=== PATIENT | male | born 1965 | race African-American/Black ===

== ENCOUNTER 2016-06-24 09:53 | Inpatient (IN) ==
[2016-06-24] MEDS ORDERED: ALUM/MAG/SIMETH/LIDO VISC 1:1 30 ML BOTTLE PO STA (10:12)
[2016-06-24] MEDS ORDERED: ASPIRIN 325 MG TABLET PO STA (10:12)
--- NOTE | 2016-06-24 10:15 | EKG Report ---
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
--- NOTE | 2016-06-24 10:27 | Emergency Department Note ---
Joel Ramon Hilary, am scribing for, and in the presence of, Rakesh Alarcon MD 10: 17. Agnes Ramon James D, MD, personally performed the services described in this documentation, ascribed by Maranda Maldonado in my presence, and it is both accurate and complete . Arrival - Arrival Chief Complaint: Neuro Stated Complaint: num b on one side and neck ED Nursing Triage Note: Pt c/o left sided weakness (face/arm/leg) and a " pulling in his chest" that started a couple of wks ago. Blood sugar in triage 88. Mode of Arrival: Ambulatory Limitations: No Limitations Source: Patient, Significant other (), RN Notes Reviewed Time Seen by Provider: 06/24/16 10:08 - History of Present Illness HPI Narrative: Pt is a 50y/o black male presenting to the ED with c/o numbness in his left arm and leg and "pulling in his chest" which onset a few weeks ago. Pt confirms chest pain that anand and feels like its "pulling", numbness to his left arm and left leg, SOB, Coughing but denies swelling in his feet. Pt was in the ED a few days ago for this and was diagnosed with type 2 diabetes. Blood sugar in triage 88. He denies any exertional component. Onset (ago): week(s) Consistency: constant Allergies/Adverse Reactions: Allergies Allergy/AdvReac Type Severity Reaction Status Date / Time No Known Allergies Allergy Verified 06/24/16 09:59 Home Medications: Home Medications Medication Instructions Recorded Confirmed Type HYDROcodone/ACETAMIN 5-325 [[place] 1 tablet PO Q6H PRN 06/24/16 06/24/16 History 5-325] Lansoprazole [Prevacid] 30 mg PO DAILY 06/24/16 06/24/16 History Levothyroxine Tab [Synthroid Tab] 50 mcg PO DAILY 06/24/16 06/24/16 History Potassium Chloride [Klor-Con M20] 20 meq PO BID 06/24/16 06/24/16 History Pravastatin Sodium 20 mg PO BEDTIME 06/24/16 06/24/16 History hydroCHLOROthiazide 25 mg PO DAILY 06/24/16 06/24/16 History [Hydrochlorothiazide] metFORMIN [Glucophage] 500 mg PO DAILY 06/24/16 06/24/16 History Review of System - Review of System 12 point system: reviewed and no additional remarkable complaints except as stated - Review of System Constitutional: Absent: fever Respiratory: Present: cough, respiratory distress (SOB) Cardiovascular: Present: chest pain Gastrointestinal: Absent: abdominal pain Musculoskeletal: Absent: back pain Neurological: Present: numbness (left arm and leg) Medical,Surgical,& Family Hx - Medical History Cardio: History of: Hypertension Endocrine: History of: Diabetes Mellitus (NIDDM) - Social History Smoking Status: Never smoker Exam Physical Examination: GENERAL: This is a well-nourished, well-developed male in no apparent distress. VITAL SIGNS: Temperature: 96.3 Pulse: 95 Respiratory: 18 Blood Pressure: 167/110 O2SAT: 98 HEENT: Head is normocephalic and atraumatic. Pupils are equally round and reactive to light. Extraocular movement are intact. Oropharynx is benign with moist mucous membranes. NECK: Neck is soft and supple without tenderness. There are no masses. There is no lymphadenopathy. LUNGS: Lungs are clear to auscultation bilaterally. Chest rises symmetrically. There is slight chest wall tenderness. CV: Heart is regular rate and rhythm without murmurs, rubs, or gallops. ABDOMEN:Abdomen is soft, non-tender to palpation. There are no abnormal masses palpated. There is no organomegaly. Bowel sounds are present and active. SKIN: Skin is warm and dry. No rash. EXTREMITIES: Patient has full range of motion without tenderness. There is no pedal edema. NEUROLOGIC: Awake, alert, and oriented x4. Cranial nerves II through XII are grossly intact. There are no motorsensory deficits. PSYCHIATRIC: Normal affect. Normal mood. Vital Signs: Vital Signs Temperature 96.3 F L 06/24/16 11:50 Pulse Rate 95 H 06/24/16 11:50 Respiratory Rate 18 06/24/16 11:50 Blood Pressure 167/110 06/24/16 11:50 O2 Sat by Pulse Oximetry 98 06/24/16 09:56 Course - Consultations Consultation #1: Discussed with hospitalist. Patient will be admitted to their service. Time: 12:22 Results - Labs CBC & BMP: 06/24/16 10:58 06/24/16 10:34 Lab Results: I have reviewed the patients labs Labs: Laboratory Tests 06/24/16 11:15 Urine Color Yellow Urine Appearance Clear Urine Urobilinogen < 2.0 H Laboratory Tests 06/24/16 11:15 Urine Opiates Screen Positive H Laboratory Tests 06/24/16 06/24/16 10:34 10:58 WBC 4.8 RBC 3.87 Hgb 12.7 L Hct 33.1 L MCV 85.5 L MCHC 38.4 H Plt Count 84 L MPV 12.3 H Lymph # (Auto) 1.2 L Troponin I 0.046 H - EKG EKG results: interpreted by ERMD - Impressions EKG: Normal sinus rhythm with a rate of 89, short [place] interval, nonspecific ST-T wave changes, normal axis. - Diagnostic Findings Procedure: Chest x-ray: image reviewed by me (No infiltrates, no pleural effusions, no cardiomegaly) Disposition Clinical Impression: Chest pain, Hyponatremia Case discussed with: patient Disposition: Still a Patient Condition: Stable
[2016-06-24] MEDS ORDERED: ASPIRIN 325 MG TABLET ONE (10:31)
[2016-06-24] MEDS ORDERED: ALUM/MAG/SIMETH/LIDO VISC 1:1 30 ML BOTTLE PO ONE (10:31)
--- NOTE | 2016-06-24 10:50 | XRay Report ---
Exam: Chest 2 views Date: June 24, 2016 at 10:20 AM Comparison: Chest one view May 01, 2013 Reason: Chest pain Findings: The cardiac silhouette is normal in size. No focal consolidation, pneumothorax or pleural effusion is identified. No acute osseous process is seen. Impression: No acute cardiopulmonary process is identified. PROCEDURE INTERPRETED AT [facility] DEPARTMENT OF RADIOLOGY Final Report Signed by: Dr. Margaret Sexton
[2016-06-24 11:25] LABS: Apearance,Urine CLEAR (Clear); Bilirubin,Urine Negative (Negative); Blood, Urine Moderate mg/dL (Negative); Glucose,Urine (UA) Negative (Negative); Hyaline Casts,Urine 1 /LPF (0-3); Ketones,Urine 5 mg/dL (Negative); Mucus,Urine Occasional /LPF (Occasional); Nitrite,Urine Negative (Negative); Protein,Urine Negative; RBC,Urine <1 /HPF (0-4); Squamous Epithelial Cell,Urine Occasional /HPF (0-10); Urine Color Yellow (Yellow); Urine Specific Gravity 1.013 (1.001-1.035); Urine Urobilinogen < 2.0 EU/DL (0.2-1.0); WBC,Urine 1 /HPF (0-6)
[2016-06-24 11:31] LABS: Barbiturates Screen,Urine Negative (Negative); Benzodiazepines Screen,Urine Negative (Negative); Cannabinoid Screen,Urine Negative (Negative); Opiate Screen,Urine Positive (Negative); Phencyclidine Screen,Urine Negative (Negative)
[2016-06-24 11:36] LABS: Basophils % 0.6 % (0.0-0.8); Eosinophils % 0.2 % (0.00-10.9); Hematocrit 33.1 VOL% (42.0-52.0); Hemoglobin 12.7 GM/DL (14.0-18.0); Immature Granulocytes % 0.8 %; Immature Granulocytes Absolute 0.04 #; Lymphocytes # 1.2 10*3/uL (1.4-4.0); Lymphocytes % 24.4 % (21.2-54.2); Mean Corpuscular HGB Conc 38.4 GM/DL (32-36); Mean Corpuscular Hemoglobin 33 PG (27-34); Mean Corpuscular Volume 85.5 FL (87-102); Mean Platelet Volume 12.3 FL (9.6-12.0); Monocytes # 0.3 10*3/uL (0.11-0.8); Monocytes % 6.9 % (1.7-12.7); Neutrophils # 3.2 10*3/uL (1.4-7.4); Neutrophils % 67.1 % (38.7-73.9); Red Blood Count 3.87 MC/CUMM (3.8-5.5); White Blood Count 4.8 T/CUMM (4-12)
[2016-06-24 11:39] LABS: INR 1.3; Partial Thromboplastin Time 27.9 SECS (0-40)
[2016-06-24 11:40] LABS: PT Patient Result 14.3 SECS; Platelet Count 84 T/CUMM (130-400)
[2016-06-24 11:57] LABS: Hypochromasia 1+; Platelet Estimate Decreased; Target Cells Few
[2016-06-24 12:22] LABS: Albumin 3.3 G/DL (3.4-5.0); Bilirubin,Total 7.1 MG/DL (0.2-1.0); Calcium 7.7 MG/DL (8.5-10.1); Magnesium 2.1 MG/DL (1.8-2.4); Osmolality,Calculated 242.2 MOS/KG (273-304); Potassium 3.3 MMOL/L (3.5-5.1); Total Protein 7.2 G/DL (6.4-8.3)
[2016-06-24] MEDS ORDERED: ONDANSETRON 4 MG/2 ML VIAL IV PRN (12:42)
[2016-06-24] MEDS ORDERED: GLUCAGON 1 MG VIAL IM PRN (12:42)
[2016-06-24] MEDS ORDERED: DEXTROSE 50% 25 GM/50 ML VIAL IV PRN (12:42)
[2016-06-24] MEDS ORDERED: LACTULOSE 20 GM/30 ML UDCUP PO PRN (12:42)
[2016-06-24] MEDS ORDERED: ACETAMINOPHEN 325 MG TABLET PO PRN (12:42)
[2016-06-24] MEDS: SODIUM CHLORIDE 0.9% 1,000 ML IV SCH (12:50)
[2016-06-24] MEDS: LORazepam 2 MG/1 ML VIAL IV PRN ×2 (13:15→17:34)
[2016-06-24 13:54] LABS: Risk Ratio 24.05; VLDL CHOLESTEROL 262.2 MG/DL
--- NOTE | 2016-06-24 14:02 | Hospitalist History & Physical ---
Assessment and Plan - Time spent with patient Time spent with patient: Greater than 30 minutes (1) Acanthosis nigricans Status: Acute Assessment and plan: 50-year-old -[place] male with history of hypertension and diabetes admitted by hospital medicine with chest pain, delirium tremens, hyperbilirubinemia, and hyponatremia. Patient is going to be admitted to the ICU for close evaluation and monitoring. Patient's case has been discussed with Dr. Arauz and further recommendations to follow. Chest pain and elevated troponin--we will get serial troponins and serial EKGs, consult cardiology. Hyperbilirubinemia and jaundice--patient has been started on IV fluids, CT scan and abdominal ultrasound have been ordered. Will discuss with Dr. Arauz about consulting GI. Hyponatremia--gentle hydration with normal saline and repeat labs daily. Hypokalemia--potassium replacement Diabetes--we will hold his metformin during this hospital stay and start sliding scale insulin. Delirium tremens and alcohol abuse--this is most likely from alcohol abuse. Will order banana bag, Ativan as needed and Librium. Lactulose is also been ordered Current Visit: Yes (2) Hypokalemia Status: Acute Current Visit: Yes (3) Delirium tremens Status: Acute Current Visit: Yes (4) Hyperbilirubinemia Status: Acute Current Visit: Yes (5) Jaundice Status: Acute Current Visit: Yes (6) Chest pain Status: Acute Current Visit: Yes (7) Hyponatremia Status: Acute Current Visit: Yes (8) Alcohol abuse Status: Acute Current Visit: Yes History of Present Illness Chief complaint: chest pain History of present illness: Mr. Sims is a 50 year old male with history of diabetes and hypertension presenting to the ED with a 2 week history of pulling left-sided chest pain that radiates to the left neck and arm. Patient's is with him and got a combination history from the 2 of them. Patient states for about 2 weeks now he has been having pulling gnawing chest pain on the left side this is associated with nausea and diaphoresis. They went to the [facility] and was told he had a pulled muscle. He was also found to be a new diabetic and was started on metformin. Patient is also complaining of darkness, edema, with tightness and pain to his left neck up to his ear. He is also complaining of intermittent left arm and leg numbness for the last few weeks. He denies headache, dysphasia, shortness of breath, abdominal pain, constipation or diarrhea, or lower extremity swelling. Patient states the chest pain has not gotten any better so he came to the ED today. Upon exam patient is jaundiced, anxious, and twitchy. When asked if the patient has been drinking he denied this. When asked if he previously drank the stated that he drinks anywhere from 2-6 beers per day. Patient denies drinking in the last 2 days. Patient states she has been nauseated and sweaty and he has not eaten much in the last few days. His blood pressures are elevated at 167/110, his white count is normal and H&H is stable. The patient's platelets are 84, total bilirubin is 7.1, AST 573, ALT 209, ALP 379 with a normal lipase. His sodium is low at 120 and his potassium is low at 3.3. Patient's coags are normal. His serum alcohol is 111 and his toxicology screen is positive for opiates. Patient's EKG is showing a sinus rhythm with short HI interval and nonspecific T -wave abnormality. After discussion with ED physician Dr. Alarcon and Dr. Arauz the hospitalist it was decided patient would be admitted to the ICU for further evaluation. Home Medications Medication Instructions Recorded Confirmed Type HYDROcodone/ACETAMIN 5-325 [[place] 1 tablet PO Q6H PRN 06/24/16 06/24/16 History 5-325] Lansoprazole [Prevacid] 30 mg PO DAILY 06/24/16 06/24/16 History Levothyroxine Tab [Synthroid Tab] 50 mcg PO DAILY 06/24/16 06/24/16 History Potassium Chloride [Klor-Con M20] 20 meq PO BID 06/24/16 06/24/16 History Pravastatin Sodium 20 mg PO BEDTIME 06/24/16 06/24/16 History hydroCHLOROthiazide 25 mg PO DAILY 06/24/16 06/24/16 History [Hydrochlorothiazide] metFORMIN [Glucophage] 500 mg PO DAILY 06/24/16 06/24/16 History Allergies Allergy/AdvReac Type Severity Reaction Status Date / Time No Known Allergies Allergy Verified 06/24/16 09:59 Medical,Surgical,& Family Hx - Medical History Cardio: History of: Hypertension Endocrine: History of: Diabetes Mellitus (NIDDM) - Surgical History Abdominal Surgeries: Surgical HX of: Appendectomy - Family History Family History: Reports;: Family Hypertension - Social History Smoking Status: Never smoker Frequency of Alcohol Use: Frequently Type of Drug Use: None Marital Status: Lives With:: Spouse Functional capacity: independent ambulation Review of systems: A complete 10 system review of systems was obtained and pertinent positives and negatives per HPI Exam - Constitutional Vitals: Period Temp Pulse Resp BP Sys/Soto Pulse Ox Last 24 Hr 96.3 F-96.3 F 95-95 18-18 167-167/110-110 98 Exam: 50-year-old -[place] male, anxious, twitchy, alert and oriented Constitutional System: Moderate distress. Positive tremulousness. Head: Normocephalic, atraumatic. Ears, Nose and Throat System: No evidence of Otitis or Mastoiditis. No epistaxis or discharge Eyes System: Pupils equal, round, and reactive. Extraocular muscles intact. Neck: Supple, without adenopathy, No jugular venous distention. No thyromegaly, neck mass, or prior surgery apparent. Respiratory System: Chest clear to auscultation. Cardiovascular System: Heart with regular rate and rhythm. No murmur. GI System: Abdomen soft, nontender. Normo active bowel sounds present. Musculoskeletal System: limbs with no pedal edema. Full distal pulses. Neurological System: No discernable sensory deficit. No aphasia Psychiatric System: Conversation is rational Results - Labs CBC & BMP: 06/24/16 10:58 06/24/16 10:34 Lab Results: I have reviewed the past 24 hour labs - EKG EKG results: interpreted by JOEYD - Diagnostic Findings Procedure: Chest x-ray: report reviewed by me (No acute abnormality)
[2016-06-24] MEDS ORDERED: chlordiazePOXIDE 10 MG CAPSULE PO SCH (15:00)
--- NOTE | 2016-06-24 15:48 | CT Report ---
Referring physician: Ana Arauz EXAM: CT abdomen and pelvis with contrast DATE: June 24, 2016 COMPARISON: Limited abdominal ultrasound May 03, 2015 REASON: Elevated bilirubin, low platelets, sodium 120, possible liver disease TECHNIQUE: Axial images of the abdomen and pelvis were obtained after administration of 100 cc of Omnipaque 350 IV contrast. Oral contrast was also administered. Coronal and sagittal reformatted images were also provided. Total DLP is 681.6 mGy*cm. FINDINGS: Lower thorax: The visualized lower lung zones are clear. ABDOMEN: Liver: There is diffuse decreased attenuation of the liver, suggesting hepatic steatosis. No suspicious hepatic lesion is identified. The liver contour is smooth with no clear evidence of cirrhosis by CT. The main portal vein appears patent. Gallbladder and bile ducts: The gallbladder is unremarkable. No biliary duct dilatation is present. Pancreas: Unremarkable. Spleen: Unremarkable. Adrenals: Unremarkable. Kidneys and ureters: No hydronephrosis is present. There is a 0.5 cm hypodense lesion at the upper pole of the left kidney. This is most consistent with a cyst, but characterization is limited by its small size. The ureters are unremarkable as visualized. PELVIS: Bladder: Unremarkable. Reproductive: Unremarkable as visualized. ABDOMEN AND PELVIS: Bowel: There is no evidence of bowel obstruction. Colonic diverticula are present, but there is no evidence of diverticulitis. Appendix: The appendix is not identified, but there is a history of appendectomy. Vasculature: The abdominal aorta is normal in size. There is mild scattered calcified plaque at the arteries. Peritoneum/retroperitoneum: No free air or ascites is seen. Lymph nodes: No suspicious adenopathy is seen. Abdominal/pelvic wall: There is a small broad-based fat-containing umbilical hernia. Bones: No acute osseous process is identified. IMPRESSION: 1. There is diffuse decreased attenuation of the liver, suggesting hepatic steatosis. There is no clear CT evidence of cirrhosis or portal hypertension. 2. Colonic diverticulosis without evidence of diverticulitis. 3. Small left renal cyst. The CT exam was performed using one or more of the following dose reduction techniques: Automated exposure control and adjustment of the mA and/or kV according to patient size. PROCEDURE INTERPRETED AT [facility] DEPARTMENT OF RADIOLOGY Final Report Signed by: Dr. Margaret Sexton
--- NOTE | 2016-06-24 15:55 | ECHO Report ---
Ignacio Sims Exam Date: 06/24/2016 13:41 Referring Physician: Technologist: Debbie Mccray [facility] Age: 50 Ht (in): 64 Wt (lb): 164 Gender: M Exam Location: [facility] Echo Cough, Shortness of breath, Essential (primary) hypertension, NIDDM BP: 167 / 110 HR: 88 Rhythm: Sinus Technical Quality: IMPRESSIONS Normal left ventricular size and function with left ventricular ejection fraction is estimated at 60 %. Trace to mild tricuspid valve regurgitation. MEASUREMENTS (Male / Female) Normal Values 2D ECHO LV Diastolic Diameter PLAX 4.4 cm 4.2 - 5.9 / 3.9 - 5.3 cm LV Systolic Diameter PLAX 2.5 cm LV Fractional Shortening PLAX 44.6 % IVS Diastolic Thickness 0.9 cm 0.6 - 1.0 / 0.6 - 0.9 cm LVPW Diastolic Thickness 0.9 cm 0.6 - 1.0 / 0.6 - 0.9 cm RV Internal Dim ED PLAX 2.8 cm Aortic Root Diameter 3.2 cm LA Systolic Diameter LX 2.7 cm 3.0 - 4.0 / 2.7 - 3.8 cm DOPPLER TR Peak Velocity 278.0 cm/s TR Peak Gradient 30.9 mmHg FINDINGS Left Ventricle Normal left ventricular cavity size. Normal left ventricular wall thickness. Left ventricular ejection fraction is estimated at 60 %. Right Ventricle The right ventricle is normal in size and function. Right Atrium Normal right atrial size Left Atrium Normal left atrial size Mitral Valve Morphologically normal mitral valve without significant stenosis or prolapse. There is no mitral regurgitation. Aortic Valve Morphologically normal aortic valve without significant sclerosis or stenosis. There is no aortic regurgitation. Tricuspid Valve Morphologically normal tricuspid valve. Trace to mild tricuspid valve regurgitation. Tricuspid regurgitation velocities suggest a PAP of 41 mmHg. Pulmonic Valve Morphologically normal pulmonic valve. Trace to mild pulmonary valve regurgitation. Pericardium Normal pericardium without effusion. Aorta Normal ascending aorta dimension. Leonardo Rahman (Electronically Signed) Final Date: 24 Jun 2016 15:53
[2016-06-24] MEDS: PANTOPRAZOLE 40 MG VIAL IV SCH (16:18)
[2016-06-24 16:21] LABS: Hemoglobin 12.4 GM/DL (14.0-18.0)
[2016-06-24 16:22] LABS: Hematocrit 30.8 VOL% (42.0-52.0)
[2016-06-24] MEDS ORDERED: FOLIC ACID 5 MG/1 ML VIAL IV SCH (16:30)
--- NOTE | 2016-06-24 16:30 | Cardiology Consult Note ---
Assessment and Plan (1) Chest pain Status: Acute Assessment and plan: The patient has very atypical chest discomfort with a normal EKG and normal echo. His chest discomfort is reproducible with pressure over the left chest wall. He does have some paresthesias in his left arm which would make me suspicious this could be neurogenic/related to nerve compression in the cervical region. Ultimately, this does not appear to represent any high risk/ acute cardiac abnormality. His cardiac troponin is actually essentially a normal value. I don't think I would pursue additional cardiac workup at this time given his normal EKG and echo. I am going to drop off the case at this time. If the patient is having ongoing cardiac related issues after his other problems have been worked up/corrected, or if he has a clinical change in his cardiac status, I will be happy to reevaluate him.. Current Visit: Yes (2) Alcohol abuse Status: Acute Current Visit: Yes (3) Hyperbilirubinemia Status: Acute Assessment and plan: Workup for the patient's numerous metabolic and liver-related abnormalities is underway by the hospitalist team. Current Visit: Yes (4) Delirium tremens Status: Acute Current Visit: Yes (5) Hypokalemia Status: Acute Current Visit: Yes (6) Hyponatremia Status: Acute Current Visit: Yes (7) Jaundice Status: Acute Current Visit: Yes (8) Thrombocytopenia Status: Acute Current Visit: Yes History of Present Illness - Consult Narrative History of present illness: Mr. Sims is a 50 year old male who reports a history of hypertension, diabetes, and hyperlipidemia. He came in to the hospital complaining of some "pulling" in his left chest with some paresthesias in his left arm. He apparently was worked up at [place] emergency room for the same thing recently and was told he had "a pulled muscle". At any rate, the symptoms coming go randomly. They're reproducible with pressure over the left chest wall. The symptoms are mild. There are no associated symptoms such as nausea or diaphoresis. He does not have any exertional anginal symptoms. He does report getting fatigued and dyspneic with minimal activity which is been going on "for quite some time". His EKG is essentially normal. His cardiac enzymes show a trivial abnormality with a level of 0.046 which is literally 1000th of a point above hour normal range. However, the patient has profound abnormalities in his liver functions and other labs including a sodium of 120, a bilirubin of 7.1, diffuse elevation of transaminases, cholesterol of 529, and triglyceride of 1311 as well as an anemia and thrombocytopenia. The patient is an alcoholic with a heavy drinking history as outlined in the history and physical. He may also been an early withdrawal when he arrived in the hospital despite having measurable alcohol levels in his bloodstream. In addition he was positive for opiates on his lab testing. Cardiology was asked to see him regarding the chest discomfort symptoms and the abnormality and cardiac enzymes. He has no known history of coronary artery disease. The patient had an echocardiogram at the time of admission. I reviewed the echo. He has a normal echo. He has normal left ventricular function. He does not have any significant valvular dysfunction or other abnormality. CC: Ana Arauz MD - Home Medications and Allergies Home Medications: Home Medications Medication Instructions Recorded Confirmed Type HYDROcodone/ACETAMIN 5-325 [[place] 1 tablet PO Q6H PRN 06/24/16 06/24/16 History 5-325] Lansoprazole [Prevacid] 30 mg PO DAILY 06/24/16 06/24/16 History Levothyroxine Tab [Synthroid Tab] 50 mcg PO DAILY 06/24/16 06/24/16 History Potassium Chloride [Klor-Con M20] 20 meq PO BID 06/24/16 06/24/16 History Pravastatin Sodium 20 mg PO BEDTIME 06/24/16 06/24/16 History hydroCHLOROthiazide 25 mg PO DAILY 06/24/16 06/24/16 History [Hydrochlorothiazide] metFORMIN [Glucophage] 500 mg PO DAILY 06/24/16 06/24/16 History Allergies/Adverse Reactions: Allergies Allergy/AdvReac Type Severity Reaction Status Date / Time No Known Allergies Allergy Verified 06/24/16 09:59 12 point system: reviewed and no additional remarkable complaints except as stated Medical,Surgical,& Family Hx - Medical History Cardio: History of: Hypertension No history of: [place] Psychological: History of: Psychiatric/Substance Abuse Tx (Alcohol abuse) Endocrine: History of: Diabetes Mellitus (NIDDM), Dyslipidemia Gastrointestinal: History of: GERD, Liver Problems - Surgical History Abdominal Surgeries: Surgical HX of: Appendectomy - Family History Family History: Reports;: Family Hypertension - Social History Smoking Status: Never smoker Frequency of Alcohol Use: Frequently Type of Drug Use: None Physical Examination Vital Signs Temp Pulse Resp BP Pulse Ox 96.3 F L 95 H 18 167/110 98 06/24/16 09:56 06/24/16 09:56 06/24/16 09:56 06/24/16 09:56 06/24/16 09:56 Other: General: Appears well developed, well nourished, no apparent distress HEENT: Normocephalic, atraumatic Neck: Supple Neck, Midline Trachea, No Bruit, No JVD Cardiac: Reg Rate and Rhythm, No Murmur, no gallop, no rub Lungs: Clear to auscultation, No Wheeze, Rales, Rhonchi Neuro: Cranial Nerve 2-12 Intact, Motor Function Grossly Intact Abdomen: Soft, Active Bowel Sounds, No Masses, No Pulsations/Bruits Skin: Normal color, no rash Extremities: No Clubbing, No Cyanosis, No Edema, Normal Upper Extr. Pulses Musculoskeletal: No acute abnormality noted Psychiatric: The patient does not appear to be anxious or depressed Result/EKG - Labs CBC & BMP: 06/24/16 15:45 06/24/16 10:34 Lab Results: I have reviewed the past 24 hour labs Labs: Laboratory Results - last 24 hr 06/24/16 06/24/16 06/24/16 13:02 15:43 15:45 Hgb 12.4 L Hct 30.8 L Venous Ioniz Calcium 0.91 Random Cortisol 31.9 Urine Osmolality 06/24/16 Unknown Hgb Hct Venous Ioniz Calcium Random Cortisol Urine Osmolality 551 - EKG EKG results: interpreted by me
[2016-06-24 17:01] LABS: Calcium 7.2 MG/DL (8.5-10.1); Osmolality,Calculated 234.6 MOS/KG (273-304); Potassium 3.3 MMOL/L (3.5-5.1)
[2016-06-24] MEDS: INSULIN LISPRO 100 UNIT/ML SUBCUT SCH ×2 (17:07→21:16)
[2016-06-24 17:24] LABS: Hepatitis A Ab IgM Quant 0.08 Index; Hepatitis A Ab IgM Result Negative (Negative); Hepatitis B Core IgM Quant 0.32 Index; Hepatitis B Core IgM Result Negative (Negative); Hepatitis B Surface Ag Quant < 0.10 Index; Hepatitis B Surface Ag Result Negative (Negative); Hepatitis C Virus Ab Quant 0.18 Index; Hepatitis C Virus Ab Result Negative (Negative)
[2016-06-24] MEDS: THIAMINE INJ 100 MG, FOLIC ACID INJ 1 MG, MULTIVITAMIN INJ 10 ML in SODIUM CHLORIDE 0.9... IV SCH (17:35)
--- NOTE | 2016-06-24 19:11 | Gastrointestinal Consult Note ---
Assessment and Plan (1) Alcoholic hepatitis without ascites Status: Acute Assessment and plan: This patient has a long-standing history of alcohol intake with a possible increase in recent intake although patient states that his typical daily alcohol use is on the order of 12 of the 12 ounce beers per day. We have no previous bilirubins to compare with since 05/02/13 at which time his ALT was 155 his AST was 225 and his alkaline phosphatase was 176 with a bilirubin of 3.3. Currently his bilirubin is up to 7.7 on admission. At this point in time his MELD score calculates out to 26. His Maddrey discriminant function score only calculates out to a 13.1, with normal being below 32. I agree with Dr. Arauz this patient does not need steroids. He has good synthetic function as witnessed by his low PT/INR and his relatively intact albumin total protein. He likely does have cirrhosis however given his sodium of 117-120 and his platelet level of 84, despite the findings on CT scan. I will go ahead and check his ammonia level and AFP level mostly from baseline. We will continue to watch this patient as he moves through the next 2 days for evidence of DTs. I personally do not like long-acting benzodiazepines like Librium, preferring to treat DTs with shorter acting boluses of either Ativan or Serax. I suspect that his alcoholic hepatitis will improve to some degree although bear in mind that his bilirubin 2 years ago was 3.3 and so will likely settle down to a ~5 when he is back at his baseline. We need to emphasize abstinence for this patient, realizing that his recidivism rate will be extremely high. Current Visit: Yes (2) Guaiac positive stools Status: Acute Assessment and plan: We will continue to watch this patient's hematocrit currently this is 33.1 with hemoglobin of 12.7. He is only mildly guaiac positive I do not see any evidence of bloody stools. It may be helpful to know if the patient has varices before he leaves the hospital to know whether or not we need to put him on beta-blockers for prophylaxis. We certainly cannot scope the patient while he has a sodium below 130 and so continued correction of this electrolyte will be crucial. Risks of the procedure include but are not limited to: Bleeding, infection, cardiac and pulmonary compromise. Current Visit: Yes (3) Hyponatremia Status: Acute Assessment and plan: Agree with judicious use of normal saline. Observe for development of gross ascites. Will likely need to keep an eye on the patient's potassium as well as magnesium levels as the latter tends to be chronically low in these patients. Agree with serial metabolic profiles. Current Visit: Yes (4) Personal history of alcoholism Status: Acute Assessment and plan: See above. Note that he will not be a transplant candidate until he is been sober for at least 6 months. His current MELD score would qualify for potential transplant. Current Visit: Yes History of Present Illness Chief complaint: Alcoholic hepatitis History of present illness: Mr. Sims is a 50 year old male who has a history of some atypical chest pain and states that he has had some dark stools earlier and his noted to have some brown stools on physical exam that are indeed guaiac positive. He is a long- standing alcoholic who states that he drinks 12 beers per day and emphasizes that these are 12 ounce beers. He denies emphatically use of whiskey on top of the beer intake. His laboratories demonstrate evidence of alcoholic hepatitis with an AST of 573 with an ALT of 209, alkaline phosphatase of 379 and a bilirubin of 7.1. Surprisingly the INR is only 1.3. CT scan does not demonstrate biliary ductal dilatation nor are there any liver masses seen and although the echotexture of the liver is increased in keeping with steatosis versus cirrhosis there is no ascites or shrinkage of liver/nodularity of the liver edge as might be seen with cirrhosis typically. He has had some nausea and vomiting recently. He denies any visual or auditory hallucinations to me but I previously admitted these to Dr. Arauz. His sodium is extremely low in keeping with alcoholism, currently down to 117. Surprisingly his magnesium level is normal at 2.1. Total protein albumin did not indicate significant malnutrition. The patient has been given Ativan and is fairly sedated at this time and provides some of his history along with additional history taken from prior consults in the chart. I do not see that he has had previous endoscopy done for upper lower GI bleeding. He states that he stopped drinking yesterday which would explain his alcohol level in the emergency room of 111 at noon yesterday. And also that his urine opiate screen was positive as well. He is fortunately hepatitis A, B, and C negative. Home Medications Medication Instructions Recorded Confirmed Type HYDROcodone/ACETAMIN 5-325 [Erin 1 tablet PO Q6H PRN 06/24/16 06/24/16 History 5-325] Lansoprazole [Prevacid] 30 mg PO DAILY 06/24/16 06/24/16 History Levothyroxine Tab [Synthroid Tab] 50 mcg PO DAILY 06/24/16 06/24/16 History Potassium Chloride [Klor-Con M20] 20 meq PO BID 06/24/16 06/24/16 History Pravastatin Sodium 20 mg PO BEDTIME 06/24/16 06/24/16 History hydroCHLOROthiazide 25 mg PO DAILY 06/24/16 06/24/16 History [Hydrochlorothiazide] metFORMIN [Glucophage] 500 mg PO DAILY 06/24/16 06/24/16 History Allergies Allergy/AdvReac Type Severity Reaction Status Date / Time No Known Allergies Allergy Verified 06/24/16 09:59 Medical,Surgical,& Family Hx - Medical History Cardio: History of: Hypertension No history of: ND Psychological: History of: Psychiatric/Substance Abuse Tx (Alcohol abuse) Endocrine: History of: Diabetes Mellitus (NIDDM), Dyslipidemia Gastrointestinal: History of: GERD, Liver Problems - Surgical History Abdominal Surgeries: Surgical HX of: Appendectomy - Family History Family History: Reports;: Family Hypertension - Social History Smoking Status: Never smoker Frequency of Alcohol Use: Frequently Type of Drug Use: None ROS unobtainable: other (Recent opiate sedation. Patient cannot concentrate on questioning) Exam - Constitutional Vitals: Period Temp Pulse Resp BP Sys/Soto Pulse Ox Last 24 Hr 99.6 F 86-109 13-20 119-176/70-94 95-98 General appearance: no acute distress Exam: Constitutional: Well-developed, well-nourished, alert, and appears somnolent from recent Ativan use. Head and face: Head: Normocephalic atraumatic Eyes: Conjunctiva without injection, the patient does have some gross scleral icterus, pupils equal and round bilaterally Ears: Intact to conversation in both ears Nose: External appearance is normal, nares patent Mouth: Oral mucous membranes moist without erythema dentition noted to be without erosion Neck: Normal appearance, no masses or tenderness, trachea midline Thyroid: Gland midline and appropriate size for age Respiratory: Normal respiratory effort, clear to auscultation without wheezes, rhonchi or rales Cardiovascular: Regular rate and rhythm, normal S1, S2, the exam is without rubs, murmurs or gallops. Gastrointestinal: Very mild epigastric/periumbilical to deep palpation, the abdomen appears somewhat distended, normal active bowel sounds, tone normal without rigidity or guarding, no masses present, no hepatomegaly, no spleen tip felt. Moderate tenderness on with Shelley brown stool that was rectal exam obtained mildly guaiac positive.. Lymphatic: Neck without adenopathy, axilla without lymphadenopathy present, with darkened pigmentation noted at the axilla Musculoskeletal: Right and left lower extremities with trace evidence of edema Skin and subcutaneous tissue: No rashes or ulcerations noted, normal skin turgor, digits and nails without clubbing/cyanosis/deformities. Neurologic: The patient is somnolent but can answer some repeated questions Psychiatric: Patient is an active alcoholic he does not appear to be having agitation consistent with DTs but is instead quite somnolent likely secondary to the Ativan he has been given Results - Labs CBC & BMP: 06/24/16 15:45 06/24/16 15:43
[2016-06-24] MEDS: chlordiazePOXIDE 10 MG CAPSULE PO SCH (21:30)
[2016-06-24] MEDS: METOPROLOL TARTRATE 25 MG TABLET PO SCH (21:31)
[2016-06-24] MEDS: POTASSIUM CHLORIDE 20 MEQ TABLET PO SCH (21:31)
[2016-06-25] MEDS: SODIUM CHLORIDE 0.9% 1,000 ML IV SCH ×2 (02:01→03:13)
[2016-06-25] MEDS: chlordiazePOXIDE 10 MG CAPSULE PO SCH ×4 (02:05→17:08)
[2016-06-25 02:11] LABS: Basophils % 0.6 % (0.0-0.8); Eosinophils % 0.2 % (0.00-10.9); Immature Granulocytes % 0.6 %; Immature Granulocytes Absolute 0.03 #; Lymphocytes # 0.2 10*3/uL (1.4-4.0); Lymphocytes % 3.9 % (21.2-54.2); Mean Corpuscular HGB Conc 38.9 GM/DL (32-36); Mean Corpuscular Hemoglobin 33 PG (27-34); Mean Corpuscular Volume 85.9 FL (87-102); Monocytes # 1.7 10*3/uL (0.11-0.8); Monocytes % 36.1 % (1.7-12.7); Neutrophils # 2.7 10*3/uL (1.4-7.4); Neutrophils % 58.6 % (38.7-73.9); Platelet Count 66 T/CUMM (130-400); Red Blood Count 3.77 MC/CUMM (3.8-5.5); Red Cell Distribution Width 15.1 % (9.3-17.3); White Blood Count 4.6 T/CUMM (4-12)
[2016-06-25 02:19] LABS: Hematocrit 31.8 VOL% (42.0-52.0)
[2016-06-25 02:20] LABS: Hemoglobin 12.6 GM/DL (14.0-18.0)
[2016-06-25 02:47] LABS: Eosinophils 2 % (0-10); Lymphocytes 30 % (20-55); Myelocytes 1 %; Segmented Neutrophils 62 % (50-85); Total Cells Counted 100
[2016-06-25 02:49] LABS: Anisocytosis 1+
[2016-06-25 02:50] LABS: Hypochromasia 1+; Platelet Estimate Decreased
[2016-06-25 03:02] LABS: Albumin 2.9 G/DL (3.4-5.0); Calcium 7.8 MG/DL (8.5-10.1); Total Protein 6.5 G/DL (6.4-8.3)
[2016-06-25 03:03] LABS: Osmolality,Calculated 251.5 MOS/KG (273-304); Potassium 3.2 MMOL/L (3.5-5.1)
[2016-06-25 05:25] LABS: Random Urine Protein (Bench) 50 MG/DL (<11.9)
--- NOTE | 2016-06-25 07:22 | EKG Report ---
Stationary ECG Study [facility] Test Date: 06/25/2016 6:58:54 AM Pat Name: TOR FLORENTINO Department: Room: 121 Gender: M Director Mission: [place] : [id number] Requested by: Ana Arauz Order Number: [id number] Reading MD: AARON COOK Intervals [place] Rate: 89 P: 73 CO: 118 QRS: 35 QRSD: 84 T: -24 QT: 380 QTc: 426 Interpretive Statements SINUS RHYTHM WITH SHORT CO INTERVAL NONSPECIFIC T-WAVE ABNORMALITY Electronically Signed On 06-25-16 13:53:34 CDT by AARON COOK [email or web address]
[2016-06-25] MEDS ORDERED: COSYNTROPIN 0.25 MG VIAL IV ONE (08:00)
[2016-06-25] MEDS: INSULIN LISPRO 100 UNIT/ML SUBCUT SCH ×4 (08:22→20:48)
[2016-06-25] MEDS: PANTOPRAZOLE 40 MG VIAL IV SCH (08:48)
[2016-06-25] MEDS: LEVOTHYROXINE 50 MCG TABLET PO SCH (08:49)
[2016-06-25] MEDS: POTASSIUM CHLORIDE 20 MEQ TABLET PO SCH (08:49)
[2016-06-25] MEDS: METOPROLOL TARTRATE 25 MG TABLET PO SCH ×2 (08:49→21:13)
[2016-06-25] MEDS: ASPIRIN 325 MG TABLET PO SCH (08:49)
[2016-06-25] MEDS ORDERED: FOLIC ACID 5 MG/1 ML VIAL IV SCH (09:00)
[2016-06-25] MEDS ORDERED: PANTOPRAZOLE 40 MG TABLET PO SCH (09:00)
[2016-06-25 09:14] LABS: Calcium 8.1 MG/DL (8.5-10.1); Osmolality,Calculated 257.1 MOS/KG (273-304); Potassium 3.5 MMOL/L (3.5-5.1)
--- NOTE | 2016-06-25 09:48 | Hospitalist Progress Note ---
Assessment and Plan (1) Alcoholic hepatitis without ascites Status: Acute Assessment and plan: Liver enzymes continue to be elevated. GI is following the case. We have decreased the frequency of is Librium to Q8H. Discussed extensively the negative effects of alcohol abuse and the possibility of alcohol cessation. The patient was unwilling to commit to a definite plan of action at this time stating "I can quit". We will continue to monitor and follow recommendations of GI. Current Visit: Yes (2) Hyponatremia Status: Acute Assessment and plan: Infusing NS 75ml/lhr IV. Na normalizing at a safe rate. Na 128 today. We will continue this current plan of care. Current Visit: Yes (3) Chest pain Status: Acute Assessment and plan: Denies chest pain today. Troponins trending downward. Cardiology is following. Current Visit: Yes (4) Thrombocytopenia Status: Acute Current Visit: Yes (5) Personal history of alcoholism Status: Acute Current Visit: Yes Hospitalist: Subjective Interval history: Patient seen and examined today alongside Dr. Arauz. He is awake, responsive and appears to be much better than on admission. We discussed the negative life effects that alcohol abuse causes and the possibility of alcohol cessation. The patient voiced understanding but was unwilling to commit to a plan of action to quick drinking. Patient nor the nurse voiced any complaints overnight. Sodium is improving at a safe rate. Withdrawal symptoms seem to be under control, however the patient does appear to be somewhat aloof; not entirely attentive. We will continue to monitor for these symptoms. Continue the current plan of care. GI is following. Exam - Constitutional Vitals: Period Temp Pulse Resp BP Sys/Soto Pulse Ox Last 24 Hr 98.0 F-99.6 F 71-115 11-24 119-176/70-103 95-98 Exam: General appearance: overweight, no acute distress - Head Head exam: Present: normocephalic, atraumatic - Eye Eye exam: Present: EOMI. Absent: conjunctival injection, nystagmus Pupils: Present: ROXANA, normal accommodation - ENT ENT exam: Present: normal exam, normal external ear exam - Neck Neck exam: Present: normal inspection. Absent: lymphadenopathy, tenderness, thyromegaly - Respiratory Respiratory exam: Present: clear to auscultation bilaterally. Absent: rales, rhonchi, wheezes - Cardiovascular Cardiovascular exam: Present: regular rate and rhythm. Absent: carotid bruit, gallop, rubs - GI/Abdominal GI/Abdominal exam: Present: normal bowel sounds. Absent: ascites, distended, mass - Extremities Exam Extremities exam: Present: normal inspection, normal capillary refill. Absent: edema - Back Exam Back exam: Absent: CVA tenderness (L), CVA tenderness (R) - Neurological Exam Neurological exam: Present: alert, oriented X3 - Psychiatric Psychiatric exam: Present: normal affect, conversation is normal - Skin Skin exam: Present: normal color, warm, dry Results - Labs CBC & BMP: 06/25/16 02:06 06/25/16 08:26
[2016-06-25] MEDS: THIAMINE INJ 100 MG, FOLIC ACID INJ 1 MG, MULTIVITAMIN INJ 10 ML in SODIUM CHLORIDE 0.9... IV SCH (17:07)
--- NOTE | 2016-06-25 17:13 | Gastrointestinal Progress Note ---
Assessment and Plan (1) Alcoholic hepatitis without ascites Status: Acute Assessment and plan: This patient has a long-standing history of alcohol intake with a possible increase in recent intake although patient states that his typical daily alcohol use is on the order of 12 of the 12 ounce beers per day. We have no previous bilirubins to compare with since 05/02/13 at which time his ALT was 155 his AST was 225 and his alkaline phosphatase was 176 with a bilirubin of 3.3. Currently his bilirubin is up to 7.7 on admission. At this point in time his MELD score calculates out to 26. His Maddrey discriminant function score only calculates out to a 13.1, with normal being below 32. I agree with Dr. Arauz this patient does not need steroids. He has good synthetic function as witnessed by his low PT/INR and his relatively intact albumin total protein. He likely does have cirrhosis however given his sodium of 117-120 and his platelet level of 84, despite the findings on CT scan. I will go ahead and check his ammonia level and AFP level mostly from baseline. We will continue to watch this patient as he moves through the next 2 days for evidence of DTs. I personally do not like long-acting benzodiazepines like Librium, preferring to treat DTs with shorter acting boluses of either Ativan or Serax. I suspect that his alcoholic hepatitis will improve to some degree although bear in mind that his bilirubin 2 years ago was 3.3 and so will likely settle down to a ~5 when he is back at his baseline. We need to emphasize abstinence for this patient, realizing that his recidivism rate will be extremely high. 06/25/16--The patient's platelet level is down to 66 today. His hematocrit has not changed significantly. He is not having any GI bleeding aside from the scant guaiac positivity noted in his stools. He does state that his stools have been dark on and off and I anticipate before he is discharged from the hospital we will need to do an upper endoscopy looking for varices as well as gastritis. With a platelet level is low as it is he is physiologically anticoagulated and I would suggest that he probably does not need the aspirin each day for further anticoagulation. Will repeat patient's liver function tests and obtain ammonia level/AFP tomorrow. If there is significant elevation of the ammonia will likely need to start lactulose. He appears to be doing fairly well on the Librium, hopefully it 72 hours we can start to taper this medication. I have continued to stress abstinence for the future. Current Visit: Yes (2) Guaiac positive stools Status: Acute Assessment and plan: We will continue to watch this patient's hematocrit currently this is 33.1 with hemoglobin of 12.7. He is only mildly guaiac positive I do not see any evidence of bloody stools. It may be helpful to know if the patient has varices before he leaves the hospital to know whether or not we need to put him on beta-blockers for prophylaxis. We certainly cannot scope the patient while he has a sodium below 130 and so continued correction of this electrolyte will be crucial. Risks of the procedure include but are not limited to: Bleeding, infection, cardiac and pulmonary compromise. The patient's sodium level is up from 117-->128 at this time. I suspect that he may be able to have an upper endoscopy on Thursday to prognosticate before going home shortly thereafter. We need to target 134 or above as far as the patient's sodium level as per anesthesia. Hematocrit is down slightly to 31%. Current Visit: Yes (3) Hyponatremia Status: Acute Assessment and plan: Agree with judicious use of normal saline. Observe for development of gross ascites. Will likely need to keep an eye on the patient's potassium as well as magnesium levels as the latter tends to be chronically low in these patients. Agree with serial metabolic profiles. 06/25/16--Again this patient's sodium levels up from 117 currently at 128. Hopefully we can continue this trend. Current Visit: Yes (4) Personal history of alcoholism Status: Acute Assessment and plan: See above. Note that he will not be a transplant candidate until he is been sober for at least 6 months. His current MELD score would qualify for potential transplant. 06/25/16-- Repeat liver function tests tomorrow. Current Visit: Yes Gastroenterology - PN: Subj Interval history: Patient is less agitated today and is eating well without nausea or vomiting. His sodium is actually up to 128 (from initial 117) and he feels a great deal better. He is wondering when he will be able to go home. Exam (Progress Note) - Constitutional Vitals: Period Temp Pulse Resp BP Sys/Soto Pulse Ox Last 24 Hr 97.4 F-98.7 F 71-115 11-24 115-159/74-103 95-99 General appearance: no acute distress - Head Head exam: Present: normocephalic, atraumatic - Eye Eye exam: Present: EOMI, scleral icterus - Respiratory Respiratory exam: Present: clear to auscultation bilaterally. Absent: rhonchi, stridor, wheezes - Cardiovascular Cardiovascular exam: Present: regular rate and rhythm - GI/Abdominal GI/Abdominal exam: Present: normal bowel sounds, ascites, distended, soft. Absent: guarding, tenderness, rebound - Extremities Exam Extremities exam: Present: normal inspection - Neurological Exam Neurological exam: Present: alert, oriented X3 - Psychiatric Psychiatric exam: Present: normal affect, normal mood, agitated (Mildly) - Skin Skin exam: Present: warm Results - Labs CBC & BMP: 06/25/16 02:06 06/25/16 08:26
[2016-06-25 18:52] LABS: Bilirubin,Direct 5.4 MG/DL (0.0-0.20); Bilirubin,Indirect 2.4 MG/DL (0.0-1.0); Bilirubin,Total 7.8 MG/DL (0.2-1.0); Total Protein 6.8 G/DL (6.4-8.3)
[2016-06-26] MEDS: chlordiazePOXIDE 10 MG CAPSULE PO SCH ×3 (00:29→17:04)
[2016-06-26 06:39] LABS: Albumin 2.7 G/DL (3.4-5.0); Bilirubin,Total 6.8 MG/DL (0.2-1.0); Calcium 8.2 MG/DL (8.5-10.1); Osmolality,Calculated 263.4 MOS/KG (273-304); Potassium 3.3 MMOL/L (3.5-5.1); Total Protein 6.2 G/DL (6.4-8.3)
[2016-06-26] MEDS: INSULIN LISPRO 100 UNIT/ML SUBCUT SCH ×4 (07:38→21:11)
[2016-06-26] MEDS: SODIUM CHLORIDE 0.9% 1,000 ML IV SCH (09:30)
[2016-06-26] MEDS: THIAMINE 100 MG TABLET PO SCH (09:31)
[2016-06-26] MEDS: FOLIC ACID 1 MG TABLET PO SCH (09:31)
[2016-06-26] MEDS: ASPIRIN 325 MG TABLET PO SCH (09:31)
[2016-06-26] MEDS: PANTOPRAZOLE 40 MG TABLET PO SCH (09:31)
[2016-06-26] MEDS: METOPROLOL TARTRATE 25 MG TABLET PO SCH ×2 (09:31→21:03)
[2016-06-26] MEDS: LEVOTHYROXINE 50 MCG TABLET PO SCH (09:31)
[2016-06-26] MEDS: POTASSIUM CHLORIDE 20 MEQ TABLET PO SCH ×2 (09:31→21:03)
--- NOTE | 2016-06-26 12:34 | Gastrointestinal Progress Note ---
Assessment and Plan (1) Alcoholic hepatitis without ascites Status: Acute Assessment and plan: This patient has a long-standing history of alcohol intake with a possible increase in recent intake although patient states that his typical daily alcohol use is on the order of 12 of the 12 ounce beers per day. We have no previous bilirubins to compare with since 05/02/13 at which time his ALT was 155 his AST was 225 and his alkaline phosphatase was 176 with a bilirubin of 3.3. Currently his bilirubin is up to 7.7 on admission. At this point in time his MELD score calculates out to 26. His Maddrey discriminant function score only calculates out to a 13.1, with normal being below 32. I agree with Dr. Arauz this patient does not need steroids. He has good synthetic function as witnessed by his low PT/INR and his relatively intact albumin total protein. He likely does have cirrhosis however given his sodium of 117-120 and his platelet level of 84, despite the findings on CT scan. I will go ahead and check his ammonia level and AFP level mostly from baseline. We will continue to watch this patient as he moves through the next 2 days for evidence of DTs. I personally do not like long-acting benzodiazepines like Librium, preferring to treat DTs with shorter acting boluses of either Ativan or Serax. I suspect that his alcoholic hepatitis will improve to some degree although bear in mind that his bilirubin 2 years ago was 3.3 and so will likely settle down to a ~5 when he is back at his baseline. We need to emphasize abstinence for this patient, realizing that his recidivism rate will be extremely high. 06/25/16--The patient's platelet level is down to 66 today. His hematocrit has not changed significantly. He is not having any GI bleeding aside from the scant guaiac positivity noted in his stools. He does state that his stools have been dark on and off and I anticipate before he is discharged from the hospital we will need to do an upper endoscopy looking for varices as well as gastritis. With a platelet level is low as it is he is physiologically anticoagulated and I would suggest that he probably does not need the aspirin each day for further anticoagulation. Will repeat patient's liver function tests and obtain ammonia level/AFP tomorrow. If there is significant elevation of the ammonia will likely need to start lactulose. He appears to be doing fairly well on the Librium, hopefully it 72 hours we can start to taper this medication. I have continued to stress abstinence for the future. 06/26/16--patient appears to be less agitated today. He is being transferred out of the ICU. He is tolerating his full solid diet now. His AFP is slightly elevated at 11. His ammonia level is very low elevated at 137. We will need to start some lactulose and continue monitoring this parameter. Current Visit: Yes (2) Guaiac positive stools Status: Acute Assessment and plan: We will continue to watch this patient's hematocrit currently this is 33.1 with hemoglobin of 12.7. He is only mildly guaiac positive I do not see any evidence of bloody stools. It may be helpful to know if the patient has varices before he leaves the hospital to know whether or not we need to put him on beta-blockers for prophylaxis. We certainly cannot scope the patient while he has a sodium below 130 and so continued correction of this electrolyte will be crucial. Risks of the procedure include but are not limited to: Bleeding, infection, cardiac and pulmonary compromise. The patient's sodium level is up from 117-->128 at this time. I suspect that he may be able to have an upper endoscopy on Thursday to prognosticate before going home shortly thereafter. We need to target 134 or above as far as the patient's sodium level as per anesthesia. Hematocrit is down slightly to 31%. 06/26/16--we will proceed with upper endoscopy tomorrow to look for evidence of esophageal varices and gastritis/cause for the patient's anemia. Current Visit: Yes (3) Hyponatremia Status: Acute Assessment and plan: Agree with judicious use of normal saline. Observe for development of gross ascites. Will likely need to keep an eye on the patient's potassium as well as magnesium levels as the latter tends to be chronically low in these patients. Agree with serial metabolic profiles. 06/25/16--Again this patient's sodium levels up from 117 currently at 128. Hopefully we can continue this trend. 06/26/16--The patient's sodium level surprisingly up to 133. I will go ahead and schedule the upper endoscopy for tomorrow. Current Visit: Yes (4) Personal history of alcoholism Status: Acute Assessment and plan: See above. Note that he will not be a transplant candidate until he is been sober for at least 6 months. His current MELD score would qualify for potential transplant. 06/25/16-- Repeat liver function tests tomorrow. 06/26/16--these liver function tests are marginally improved. Current Visit: Yes (5) Hepatic encephalopathy Status: Acute Assessment and plan: Ammonia level is in the 130s. We will continue the lactulose and recheck this tomorrow to see if there is been any improvement. We can always consider adding in Xifaxan 550 mg p.o. twice daily if needed. Patient appears to be fairly mentally alert even with this elevation in ammonia. Current Visit: Yes Gastroenterology - PN: Subj Interval history: Patient eating well, bilirubin appears to be making slow improvement as do all of his liver function tests. These still remain quite elevated. He has decided he does want to get the upper endoscopy to look for evidence of esophageal varices before he is discharged home. Exam (Progress Note) - Constitutional Vitals: Period Temp Pulse Resp BP Sys/Soto Pulse Ox Last 24 Hr 97.4 F-98.5 F 73-102 12-23 99-161/34-104 96-100 General appearance: no acute distress - Eye Eye exam: Present: scleral icterus - Respiratory Respiratory exam: Present: clear to auscultation bilaterally. Absent: stridor, wheezes - Cardiovascular Cardiovascular exam: Present: regular rate and rhythm - GI/Abdominal GI/Abdominal exam: Present: normal bowel sounds, distended, tenderness (Minimal epigastric tenderness), soft - Neurological Exam Neurological exam: Present: alert, oriented X3, CN II-XII intact - Psychiatric Psychiatric exam: Present: normal affect, normal mood - Skin Skin exam: Present: warm Results - Labs CBC & BMP: 06/25/16 02:06 06/26/16 04:56
--- NOTE | 2016-06-26 13:25 | Hospitalist Progress Note ---
Assessment and Plan (1) Hyponatremia Status: Acute Assessment and plan: 1)hyponatremia- improved. likely from cirrhosis, but also the quantity if beer he drinks. cortrosyn stim test nl. Urine inappropriately concentrated. 2)alcoholic hepatitis, cirrhosis- he has ongoing alcohol abuse. plane for EGD tomorrow to look for varices. His ammonia level is high, on lactulose now. Bilirubin and transaminases remain high. viral hepatitis screen negative. 3)alcohol withdrawal- DTs controlled with librium. decrease dose today. for now he says he will quit on his own. 4) DM 5) thrombocytopenia- due to liver disease Current Visit: Yes (2) Hypokalemia Status: Acute Current Visit: Yes (3) Delirium tremens Status: Acute Current Visit: Yes (4) Hyperbilirubinemia Status: Acute Current Visit: Yes (5) Alcohol abuse Status: Acute Current Visit: Yes (6) Thrombocytopenia Status: Acute Current Visit: Yes (7) Alcoholic hepatitis without ascites Status: Acute Current Visit: Yes (8) Hepatic encephalopathy Status: Acute Current Visit: Yes Hospitalist: Subjective Interval history: Mr Sims is calm today. He denies visual or auditory hallucinations. He has had no nausea or vomiting. Tolerating regular diet. Exam - Constitutional Vitals: Period Temp Pulse Resp BP Sys/Soto Pulse Ox Last 24 Hr 97.4 F-98.5 F 73-102 12-23 99-161/34-104 96-100 General appearance: normal weight, no acute distress (no tremor) - Head Head exam: Present: normocephalic - Eye Eye exam: Present: EOMI, conjunctival injection, scleral icterus - Respiratory Respiratory exam: Present: clear to auscultation bilaterally - Cardiovascular Cardiovascular exam: Present: regular rate and rhythm - GI/Abdominal GI/Abdominal exam: Present: normal bowel sounds, soft - Neurological Exam Neurological exam: Present: alert, oriented X3 - Skin Skin exam: Present: warm, dry Results - Labs CBC & BMP: 06/25/16 02:06 06/26/16 04:56 Lab Results: I have reviewed the past 24 hour labs (ammonia 131)
[2016-06-26] MEDS: POTASSIUM CHLORIDE RIDER 10 MEQ in PREMIX 1 EACH IV SCH ×4 (15:01→22:28)
[2016-06-26] MEDS: LACTULOSE 20 GM/30 ML UDCUP PO SCH ×3 (15:01→21:03)
[2016-06-26] MEDS ORDERED: POTASSIUM CHLORIDE RIDER 10 MEQ in PREMIX 1 EACH IV ONE (22:00)
[2016-06-27] MEDS: chlordiazePOXIDE 10 MG CAPSULE PO SCH ×2 (01:39→10:16)
[2016-06-27] MEDS: LACTULOSE 20 GM/30 ML UDCUP PO SCH ×4 (02:05→14:00)
[2016-06-27 04:52] LABS: Albumin 2.8 G/DL (3.4-5.0); Bilirubin,Total 6.4 MG/DL (0.2-1.0); Calcium 8.5 MG/DL (8.5-10.1); Osmolality,Calculated 267.1 MOS/KG (273-304); Potassium 4.2 MMOL/L (3.5-5.1); Total Protein 6.1 G/DL (6.4-8.3)
[2016-06-27] MEDS ORDERED: LIDOCAINE 2% 5 ML VIAL ONE (08:05)
[2016-06-27] MEDS ORDERED: PROPOFOL 200 MG/20 ML VIAL IV ONE (08:05)
--- NOTE | 2016-06-27 08:08 | Operative Note ---
Date of procedure: 06/27/16 Pre-op diagnosis: Active alcoholism, thrombocytopenia, without varices w/ cirrhosis Post-op diagnosis: other (Moderate linear erosive gastritis, the cause of this patient's anemia, likely toxic due to medications or alcohol--biopsies pending. No gross evidence of portal hypertensive gastropathy, mild duodenitis noted) Procedure: PROCEDURE: Esophagogastroduodenoscopy (EGD) with cold biopsy for pathology REFERRING PHYSICIAN: Ana Arauz MD INDICATIONS: This is a patient who has alcoholic cirrhosis and has thrombocytopenia with platelets of 66. He has never had upper endoscopy and does have a hematocrit of 30-32 %, we are performing upper endoscopy to look for varices for prognostication on future bleeding. The prior H&P was reviewed and interrim changes are as noted: Please see my consultation from earlier this admission ENDOSCOPIST: Barrett Peralta MD ENDOSCOPE: [employer] 100 System upper endoscope ASA CLASS: 3 EXAM: CV: regular rate and rhythm respiratory: Clear without wheezes abdominal: active bowel sounds MEDICATION: Per nursing anesthesia protocol, see their notes PROCEDURE: After discussion of the potential risks and benefits of upper endoscopy, the informed consent was obtained. The patient was then placed in the left lateral decubitus position where sedation was achieved as noted above. Esophageal intubation was performed without difficulty, and the endoscope was advanced through the esophagus, stomach and duodenum. A slow withdrawal was then performed with retroflexion in the stomach for careful inspection of the incisura angularis, fundus and cardia. The scope was then returned to a neutral position and withdrawn through the esophagus. The patient tolerated the procedure well and without complication. BIOPSIES: Gastric antrum/body PHOTOGRAPHS: Obtained FINDINGS: Hypopharynx and Larynx: Normal Esohagoscopy Upper and middle thirds: Normal Lower third no evidence of varices, no evidence of esophagitis Esophogastric junctions: Normal Gastroscopy: Cardia/Fundus: No hiatal hernia no retained fluid Body: Moderate linear erosive gastritis, biopsied 1 Antrum and pylorus moderate linear erosive gastritis biopsied 1 Duodenoscopy: Bulb mild erosive duodenitis Second and third portions: Normal IMPRESSION: Moderate linear erosive gastritis, the cause of this patient's anemia, likely toxic due to medications or alcohol--biopsies pending. No gross evidence of portal hypertensive gastropathy, mild duodenitis noted RECOMMENDATIONS: Follow up for biopsy results in 1-2 weeks by phone [phone] Continue anti-gastroesophageal reflux measures (avoid carbonated and acidic beverages, avoid eating within 2 hours of bedtime, avoid tight fitting clothing , and elevate the front bed posts 6 inches prior to sleeping. Protonix 40 mg daily Complete abstinence from alcohol is strongly suggested. Barrett Peralta MD COPY TO: Ana Arauz MD Anesthesia: MAC Surgeon / Physician: Barrett Peralta Estimated blood loss: minimal Specimens: other (Gastric antrum/body) Condition: stable Disposition: post procedure unit ([facility] Suite) Results - Labs CBC & BMP: 06/25/16 02:06 06/27/16 03:42 Discharge Plan - Discharge Medications No Action HYDROcodone/ACETAMIN 5-325 [[place] 5-325] 1 tablet PO Q6H PRN PRN Reason: Pain metFORMIN [Glucophage] 500 mg PO DAILY Levothyroxine Tab [Synthroid Tab] 50 mcg PO DAILY hydroCHLOROthiazide [Hydrochlorothiazide] 25 mg PO DAILY Potassium Chloride [Klor-Con M20] 20 meq PO BID Lansoprazole [Prevacid] 30 mg PO DAILY Pravastatin Sodium 20 mg PO BEDTIME - Follow Up or Referral - Forms/Instructions
--- NOTE | 2016-06-27 08:24 | Gastrointestinal Progress Note ---
Assessment and Plan (1) Alcoholic hepatitis without ascites Status: Acute Assessment and plan: This patient has a long-standing history of alcohol intake with a possible increase in recent intake although patient states that his typical daily alcohol use is on the order of 12 of the 12 ounce beers per day. We have no previous bilirubins to compare with since 05/02/13 at which time his ALT was 155 his AST was 225 and his alkaline phosphatase was 176 with a bilirubin of 3.3. Currently his bilirubin is up to 7.7 on admission. At this point in time his MELD score calculates out to 26. His Maddrey discriminant function score only calculates out to a 13.1, with normal being below 32. I agree with Dr. Arauz this patient does not need steroids. He has good synthetic function as witnessed by his low PT/INR and his relatively intact albumin total protein. He likely does have cirrhosis however given his sodium of 117-120 and his platelet level of 84, despite the findings on CT scan. I will go ahead and check his ammonia level and AFP level mostly from baseline. We will continue to watch this patient as he moves through the next 2 days for evidence of DTs. I personally do not like long-acting benzodiazepines like Librium, preferring to treat DTs with shorter acting boluses of either Ativan or Serax. I suspect that his alcoholic hepatitis will improve to some degree although bear in mind that his bilirubin 2 years ago was 3.3 and so will likely settle down to a ~5 when he is back at his baseline. We need to emphasize abstinence for this patient, realizing that his recidivism rate will be extremely high. 06/25/16--The patient's platelet level is down to 66 today. His hematocrit has not changed significantly. He is not having any GI bleeding aside from the scant guaiac positivity noted in his stools. He does state that his stools have been dark on and off and I anticipate before he is discharged from the hospital we will need to do an upper endoscopy looking for varices as well as gastritis. With a platelet level is low as it is he is physiologically anticoagulated and I would suggest that he probably does not need the aspirin each day for further anticoagulation. Will repeat patient's liver function tests and obtain ammonia level/AFP tomorrow. If there is significant elevation of the ammonia will likely need to start lactulose. He appears to be doing fairly well on the Librium, hopefully it 72 hours we can start to taper this medication. I have continued to stress abstinence for the future. 06/26/16--patient appears to be less agitated today. He is being transferred out of the ICU. He is tolerating his full solid diet now. His AFP is slightly elevated at 11. His ammonia level is very low elevated at 137. We will need to start some lactulose and continue monitoring this parameter. 06/27/16--The patient is doing well, still a little groggy appearing but this may be due to benzodiazepines use to prevent DTs. His ammonia level is certainly improved down from 137-->61, suggest continuing lactulose as an outpatient Current Visit: Yes (2) Guaiac positive stools Status: Acute Assessment and plan: We will continue to watch this patient's hematocrit currently this is 33.1 with hemoglobin of 12.7. He is only mildly guaiac positive I do not see any evidence of bloody stools. It may be helpful to know if the patient has varices before he leaves the hospital to know whether or not we need to put him on beta-blockers for prophylaxis. We certainly cannot scope the patient while he has a sodium below 130 and so continued correction of this electrolyte will be crucial. Risks of the procedure include but are not limited to: Bleeding, infection, cardiac and pulmonary compromise. The patient's sodium level is up from 117-->128 at this time. I suspect that he may be able to have an upper endoscopy on Thursday to prognosticate before going home shortly thereafter. We need to target 134 or above as far as the patient's sodium level as per anesthesia. Hematocrit is down slightly to 31%. 06/26/16--We Will proceed with upper endoscopy tomorrow to look for evidence of esophageal varices and gastritis/cause for the patient's anemia. 06/27/16--Upper endoscopy results are as follows: Moderate linear erosive gastritis, the cause of this patient's anemia, likely toxic due to medications or alcohol--biopsies pending. No gross evidence of portal hypertensive gastropathy, mild duodenitis noted. He should do well with a single dose of Protonix per day and avoidance of alcohol. Current Visit: Yes (3) Hyponatremia Status: Acute Assessment and plan: Agree with judicious use of normal saline. Observe for development of gross ascites. Will likely need to keep an eye on the patient's potassium as well as magnesium levels as the latter tends to be chronically low in these patients. Agree with serial metabolic profiles. 06/25/16--Again this patient's sodium levels up from 117 currently at 128. Hopefully we can continue this trend. 06/26/16--The patient's sodium level surprisingly up to 133. I will go ahead and schedule the upper endoscopy for tomorrow. 06/27/16--No further issues Current Visit: Yes (4) Personal history of alcoholism Status: Acute Assessment and plan: See above. Note that he will not be a transplant candidate until he is been sober for at least 6 months. His current MELD score would qualify for potential transplant. 06/25/16-- Repeat liver function tests tomorrow. 06/26/16--these liver function tests are marginally improved. 06/27/16--The LFTs continue to improve. I suspect that his bilirubin will not return to normal but rather will bottom out at about 5 at this point given the number of years that he has had cirrhosis. Current Visit: Yes (5) Hepatic encephalopathy Status: Acute Assessment and plan: Ammonia level is in the 130s. We will continue the lactulose and recheck this tomorrow to see if there is been any improvement. We can always consider adding in Xifaxan 550 mg p.o. twice daily if needed. Patient appears to be fairly mentally alert even with this elevation in ammonia. 06/27/16 the patient is doing well with his lactulose. Current Visit: Yes Gastroenterology - PN: Subj Interval history: No new complaints. Exam (Progress Note) - Constitutional Vitals: Period Temp Pulse Resp BP Sys/Soto Pulse Ox Last 24 Hr 97.3 F-98.7 F 73-95 13-20 124-148/66-103 96-100 General appearance: no acute distress - Eye Eye exam: Present: EOMI Pupils: Present: ROXANA - Neck Neck exam: Present: normal inspection - Respiratory Respiratory exam: Present: clear to auscultation bilaterally. Absent: rhonchi, stridor, wheezes - Cardiovascular Cardiovascular exam: Present: regular rate and rhythm - GI/Abdominal GI/Abdominal exam: Present: normal bowel sounds, distended, soft. Absent: tenderness, rebound - Extremities Exam Extremities exam: Present: normal inspection - Neurological Exam Neurological exam: Present: alert, oriented X3, altered (Patient still slightly somnolent but ammonia level down to 61) - Psychiatric Psychiatric exam: Present: normal affect, normal mood - Skin Skin exam: Present: warm Results - Labs CBC & BMP: 06/25/16 02:06 06/27/16 03:42
--- NOTE | 2016-06-27 08:32 | Anesthesia Post-Op ---
Anesthesia Post OP - Post Ansesthetic Evaluation Patient seen in post op: Yes Resp: within normal limits CV: within normal limits Mental: within normal limits Temp: within normal limits [id number]: within normal limits Nausea and Vomiting: within normal limits Pain: within normal limits
[2016-06-27] MEDS: INSULIN LISPRO 100 UNIT/ML SUBCUT SCH ×2 (10:15→11:46)
[2016-06-27] MEDS: ASPIRIN 325 MG TABLET PO SCH (10:16)
[2016-06-27] MEDS: FOLIC ACID 1 MG TABLET PO SCH (10:16)
[2016-06-27] MEDS: METOPROLOL TARTRATE 25 MG TABLET PO SCH (10:17)
[2016-06-27] MEDS: LEVOTHYROXINE 50 MCG TABLET PO SCH (10:17)
[2016-06-27] MEDS: PANTOPRAZOLE 40 MG TABLET PO SCH (10:17)
[2016-06-27] MEDS: THIAMINE 100 MG TABLET PO SCH (10:18)
[2016-06-27 11:39] VITALS: BP 136/71
--- NOTE | 2016-06-27 11:41 | Discharge Summary ---
Hospital Course - Hospital Course Hospital Course: Discharge diagnosis: 1. Hyponatremia, likely due to beer drinker Potomania 2. Alcoholic liver disease 3. Alcoholic hepatic encephalopathy 4. Alcohol abuse The patient presented to the hospital confused and was found to be hyponatremic. He was admitted to the ICU. Hyponatremia was felt to be chronic. He was also treated for alcohol withdrawal. He was seen in consultation by GI, and moved out of the ICU after his sodium was treated. He underwent upper endoscopy on the morning of discharge, and this did not show any esophageal varices. GI felt that he should go home on lactulose and a once daily PPI. When I saw the patient, he was awake and alert. He requested discharge. We had a lengthy discussion regarding cessation of alcohol consumption. Medication reconciliation has been performed. Regular diet. Activity as tolerated. This note was completed using [employer] voice recognition software. There may be pipe testing technician errors as a result. Discharge Plan - Discharge Data Disposition: Disch To Home/Self Care Discharge Diet: advance to your usual diet Activity: resume usual activities as tolerated Hygiene: no restrictions Weight Bearing at Discharge: full weight bearing - Discharge Medications New Lactulose Liquid [Chronulac] 20 gm PO Q4HR #1 bottle Continue HYDROcodone/ACETAMIN 5-325 [[place] 5-325] 1 tablet PO Q6H PRN PRN Reason: Pain metFORMIN [Glucophage] 500 mg PO DAILY Levothyroxine Tab [Synthroid Tab] 50 mcg PO DAILY hydroCHLOROthiazide [Hydrochlorothiazide] 25 mg PO DAILY Potassium Chloride [Klor-Con M20] 20 meq PO BID Lansoprazole [Prevacid] 30 mg PO DAILY Pravastatin Sodium 20 mg PO BEDTIME - Follow Up or Referral - Forms/Instructions Exam - Constitutional Vitals: Period Temp Pulse Resp BP Sys/Soto Pulse Ox Last 24 Hr 97.3 F-98.7 F 73-95 16-20 120-148/66-103 96-100 Vital signs are noted above. He is awake and alert. He is up and about walking in the room. Heart is regular with no murmur. Lungs are clear. Discharge Results Procedures and tests throughout hospitalization: Pending Orders 06/28/16 04:00 Ammonia IN AM Labs on day of discharge: Labs from last 24 hours 06/27/16 06/27/16 06/26/16 03:42 03:42 19:44 Sodium 135 L Potassium 4.2 Chloride 101 Carbon Dioxide 25 Anion Gap 13.2 BUN 6 L Creatinine 0.90 GFR Calculation 121 BUN/Creatinine Ratio 6.00 Glucose 95 POC Glucose 131 H Calculated Osmolality 267.1 L Calcium 8.5 Total Bilirubin 6.40 H AST 279 H ALT 174 H Alkaline Phosphatase 311 H Ammonia 61 H Total Protein 6.1 L Albumin 2.8 L Globulin 3.3 Albumin/Globulin Ratio 0.8 L 06/26/16 15:15 Sodium Potassium Chloride Carbon Dioxide Anion Gap BUN Creatinine GFR Calculation BUN/Creatinine Ratio Glucose POC Glucose 120 H Calculated Osmolality Calcium Total Bilirubin AST ALT Alkaline Phosphatase Ammonia Total Protein Albumin Globulin Albumin/Globulin Ratio DS: Provider Date of admission: 06/24/16 12:33 Primary care physician: . No PCP Attending physician on admission: Ana Arauz MD Consults: 06/24/16 12:42 Consult to Physician [CONS] Routine Comment: Consulting Provider: Cardiology - [facility] 06/24/16 12:47 Consult to Case Mgmt/Social Srvs [CONS] Routine Reason for Case Mgmt/Social Srvs: Discharge Planning 06/24/16 12:48 Consult to [facility], Educator [CONS] Routine Reason for Track Laying Machine Operator: Diabetes Education 06/24/16 13:24 Consult to Pharmacy [CONS] Routine Reason for Pharmacy Consult: Adjust Meds Renal Funct 06/24/16 16:03 Consult to Physician [CONS] Routine Comment: Consulting Provider: Barrett Peralta Consult to Specialist Group: Gastroenterology When should Consulting Provider be notified: Now Person Notified: Dr. Peralta Date Notified: 06/24/16 Time Notified: 17:45 Consult Notification Comment: in CCU 06/26/16 13:27 Consult to Anesthesiology [CONS] Routine Consulting Provider: Reason for Anesthesiology: Pre-op Clearance Discharging clinician: Rohan Granados MD Expected date of discharge: 06/27/16
[2016-06-27] MEDS: SODIUM CHLORIDE 0.9% 1,000 ML IV SCH (13:59)
--- NOTE | 2016-06-30 11:23 | Pathology Report from [facility] ---
ACCESSION # : [id number] PATIENT NAME : Ignacio Sims ORDERING DR : Barrett Peralta MD CLINICAL HX: Alcoholic hepatitis - GI Bleed POST-OP DX: Gastritis SPECIMEN INFO: PAL GROSS DESCRIPTION: The speicmen is received in formalin labeled "IGNACIO SIMS" consists of a 0.9 x 0.2 cm richards tissue fragment, submitted in one cassette. DIAGNOSIS FOR IGNACIO SIMS: GASTRIC BIOPSIES: Chronic antral gastritis, active. H.pylori not seen on special stain. SERVICE DATE: 06/27/2016 REPORT DATE: 06/30/2016 PATHOLOGIST: Edward Cordova M.D. [facility]Yang
== END 2016-06-27 14:40 | disposition home or self-care (01) | DRG 640 ==
LOC: N.ED 09:53 → SUATTDRO 12:33 → N.EDINP 12:33 → N.CC 15:20 → N.2E 06-26 13:25
PROVIDERS: ADMIT Internal Medicine; ATTEND Internal Medicine Geriatric Medicine

== ENCOUNTER 2020-05-04 13:58 | Inpatient (IN) ==
[2020-05-04] MEDS ORDERED: hydrALAZINE 20 MG/1 ML VIAL IV PRN (17:05)
[2020-05-04] MEDS ORDERED: ONDANSETRON 4 MG/2 ML VIAL IV PRN (17:05)
[2020-05-04] MEDS ORDERED: GLUCAGON 1 MG VIAL IM PRN (17:05)
[2020-05-04] MEDS ORDERED: DEXTROSE 50% 25 GM/50 ML VIAL IV PRN (17:05)
[2020-05-04] MEDS ORDERED: ENOXAPARIN 40 MG/0.4 ML SYRINGE SUBCUT SCH (17:30)
[2020-05-04 17:39] LABS: Basophils # 0.1 10*3/uL (0.0-0.2); Basophils % 0.5 % (0.0-0.8); Eosinophils % 0.4 % (0.00-10.9); Hematocrit 28.8 VOL% (42.0-52.0); Hemoglobin 9.7 GM/DL (14.0-18.0); Immature Granulocytes % 0.9 %; Immature Granulocytes Absolute 0.08 #; Lymphocytes # 1.2 10*3/uL (1.4-4.0); Lymphocytes % 12.4 % (21.2-54.2); Mean Corpuscular HGB Conc 33.7 GM/DL (32-36); Mean Corpuscular Volume 91.7 FL (87-102); Monocytes % 7.1 % (1.7-12.7); Neutrophils % 78.7 % (38.7-73.9); Platelet Count 114 T/CUMM (130-400); Red Blood Count 3.14 MC/CUMM (3.8-5.5); Red Cell Distribution Width 23.9 % (9.3-17.3); White Blood Count 9.4 T/CUMM (4-12)
[2020-05-04] MEDS: chlordiazePOXIDE 25 MG CAPSULE PO SCH ×2 (17:48→23:15)
[2020-05-04 17:50] LABS: INR 3.1
[2020-05-04] MEDS: FOLIC ACID 1 MG TABLET PO SCH (17:52)
[2020-05-04] MEDS: THIAMINE 100 MG TABLET PO SCH (17:52)
[2020-05-04 18:04] LABS: Albumin 1.2 G/DL (3.4-5.0); Bilirubin,Direct 11.99 MG/DL (0.0-0.20); Total Protein 7.9 G/DL (5.0-7.5)
[2020-05-04 18:07] LABS: Bilirubin,Indirect 4.2 MG/DL (0.0-1.0); Bilirubin,Total 16.2 MG/DL (0.2-1.0)
[2020-05-04 18:07] LABS: Partial Thromboplastin Time 42.4 SECS (23.9-33.8)
[2020-05-04 18:08] LABS: Albumin 1.1 G/DL (3.4-5.0); Calcium 7.5 MG/DL (8.5-10.1); Potassium 2.9 MMOL/L (3.5-5.1)
[2020-05-04] MEDS: SODIUM CHLOR 0.9% KCL 40 MEQ 40 MEQ/1,000 ML BAG IV SCH ×2 (18:10→22:01)
[2020-05-04 18:11] LABS: Bilirubin,Total 15.8 MG/DL (0.2-1.0)
[2020-05-04] MEDS ORDERED: LACTULOSE 20 GM/30 ML UDCUP PO SCH (21:00)
[2020-05-05] MEDS: chlordiazePOXIDE 25 MG CAPSULE PO SCH ×2 (04:42→10:37)
[2020-05-05] MEDS: SODIUM CHLOR 0.9% KCL 40 MEQ 40 MEQ/1,000 ML BAG IV SCH (06:14)
[2020-05-05 06:28] LABS: Basophils % 0.7 % (0.0-0.8); Eosinophils # 0.1 10*3/uL (0.0-0.87); Hematocrit 21.7 VOL% (42.0-52.0); Hemoglobin 7.8 GM/DL (14.0-18.0); Immature Granulocytes % 0.7 %; Immature Granulocytes Absolute 0.04 #; Lymphocytes # 1.3 10*3/uL (1.4-4.0); Lymphocytes % 21.5 % (21.2-54.2); Mean Corpuscular HGB Conc 35.9 GM/DL (32-36); Mean Corpuscular Volume 87.5 FL (87-102); Monocytes % 10.7 % (1.7-12.7); Neutrophils % 64.4 % (38.7-73.9); Platelet Count 71 T/CUMM (130-400); Red Blood Count 2.48 MC/CUMM (3.8-5.5); Red Cell Distribution Width 22.9 % (9.3-17.3)
[2020-05-05 07:08] LABS: Anisocytosis 2+; Burr Cells 1+; Macrocytosis 1+; Platelet Estimate Decreased; Poikilocytosis 1+; Target Cells 1+
[2020-05-05 07:24] LABS: Albumin 0.9 G/DL (3.4-5.0); Calcium 7.3 MG/DL (8.5-10.1); Osmolality,Calculated 277.3 MOS/KG (273-304); Potassium 2.9 MMOL/L (3.5-5.1); Thyroid Stimulating Hormone 3.69 uIU/ml (0.358-3.74); Total Protein 6.1 G/DL (5.0-7.5)
[2020-05-05 07:29] LABS: Folate 14.8 NG/ML (5.38-24.0); Vitamin B12 > 2000 PG/ML (211-911)
[2020-05-05 07:30] LABS: Bilirubin,Total 13.4 MG/DL (0.2-1.0)
[2020-05-05] MEDS ORDERED: POTASSIUM CHLORIDE 20 MEQ TABLET PO ONE (07:37)
[2020-05-05 07:38] LABS: Sedimentation Rate-Westergren 81 MM/HR (0-20)
[2020-05-05] MEDS ORDERED: POTASSIUM CHLORIDE 20 MEQ TABLET PO PRN (07:41)
[2020-05-05] MEDS ORDERED: PANTOPRAZOLE 40 MG TABLET PO SCH (09:00)
[2020-05-05] MEDS ORDERED: RIFAXIMIN 550 MG TABLET PO SCH (09:00)
[2020-05-05] MEDS: THIAMINE 100 MG TABLET PO SCH (10:37)
[2020-05-05] MEDS: LACTULOSE 20 GM/30 ML UDCUP PO SCH ×2 (10:37→11:14)
[2020-05-05] MEDS: FOLIC ACID 1 MG TABLET PO SCH (10:39)
[2020-05-05 11:34] VITALS: BP 105/51
[2020-05-05] MEDS ORDERED: PENTOXIFYLLINE 400 MG TABLET PO SCH (15:00)
[2020-05-07 13:08] LABS: Hemoglobin A1 (Alkaline) 97.7 % (96.5-98.5); Hemoglobin A2 (Alkaline) 2.3 % (1.5-3.5)
== END 2020-05-05 14:45 | disposition home or self-care (01) | DRG 432 ==
LOC: N.5E → SUATTDRO 15:34
PROVIDERS: ADMIT Internal Medicine; ATTEND Internal Medicine

== ENCOUNTER 2020-05-21 12:11 | Inpatient (IN) ==
[2020-05-21] MEDS ORDERED: ETOMIDATE 20 MG/10 ML VIAL IV STA (12:30)
[2020-05-21] MEDS ORDERED: ROCURONIUM 100 MG/10 ML VIAL IV STA (12:30)
[2020-05-21] MEDS ORDERED: ROCURONIUM 100 MG/10 ML VIAL IV ONE (12:37)
[2020-05-21] MEDS ORDERED: ETOMIDATE 20 MG/10 ML VIAL IV ONE (12:37)
[2020-05-21] MEDS ORDERED: SODIUM CHLORIDE 0.9% 1,000 ML IV STA (12:45)
[2020-05-21 13:12] LABS: Basophils # 0.1 10*3/uL (0.0-0.2); Basophils % 0.3 % (0.0-0.8); Hematocrit 24.7 VOL% (42.0-52.0); Hemoglobin 8.2 GM/DL (14.0-18.0); Immature Granulocytes % 1.5 %; Immature Granulocytes Absolute 0.32 #; Lymphocytes # 1.1 10*3/uL (1.4-4.0); Mean Corpuscular HGB Conc 33.2 GM/DL (32-36); Mean Corpuscular Volume 93.6 FL (87-102); Mean Platelet Volume 13.5 FL (9.6-12.0); Monocytes % 4.7 % (1.7-12.7); Neutrophils % 88.5 % (38.7-73.9); Platelet Count 139 T/CUMM (130-400); Red Blood Count 2.64 MC/CUMM (3.8-5.5); White Blood Count 21.2 T/CUMM (4-12)
[2020-05-21 13:22] LABS: INR 3.3; PT Patient Result 33.2 SECS (9.8-11.9); Partial Thromboplastin Time 45.5 SECS (23.9-33.8)
[2020-05-21 13:36] LABS: Lymphocytes 4 % (20-55); Platelet Estimate Adequate; Segmented Neutrophils 93 % (50-85); Total Cells Counted 100
[2020-05-21 13:37] LABS: Hypochromasia Slight; Macrocytosis Slight
[2020-05-21 13:38] LABS: Alanine Aminotransferase 148 U/L (16-61); Albumin 1.1 G/DL (3.4-5.0); Alkaline Phosphatase 371 U/L (45-117); Aspartate Amino Transferase 491 U/L (0-37); Blood Urea Nitrogen 30 MG/DL (7-18); Calcium 8.1 MG/DL (8.5-10.1); Carbon Dioxide 12 MMOL/L (21-32); Estimated Glom Filtration Rate 37 ML/MIN; Glucose 84 MG/DL (74-106); Osmolality,Calculated 272.2 MOS/KG (273-304); Potassium 3.1 MMOL/L (3.5-5.1); Sodium 134 MMOL/L (136-145); Total Protein 7.8 G/DL (6.4-8.2)
[2020-05-21 13:49] LABS: Bacteria,Urine Many /HPF (Few); Blood, Urine Small mg/dL (Negative); Glucose,Urine (UA) Negative (Negative); Hyaline Casts,Urine 3 /LPF (0-3); Ketones,Urine Negative (Negative); Mucus,Urine Occasional /LPF (Occasional); Nitrite,Urine Negative (Negative); Protein,Urine Negative; RBC,Urine 3 /HPF (0-4); Squamous Epithelial Cell,Urine Occasional /HPF (0-10); Urine Appearance CLEAR (Clear); Urine Color Amber (Yellow); Urine Specific Gravity 1.013 (1.001-1.035)
[2020-05-21 13:50] LABS: Bilirubin,Urine Moderate mg/dL (Negative)
[2020-05-21 14:18] LABS: Barbiturates Screen,Urine Negative (Negative); Benzodiazepines Screen,Urine Positive (Negative); Cannabinoid Screen,Urine Negative (Negative); Opiate Screen,Urine Negative (Negative); Phencyclidine Screen,Urine Negative (Negative)
[2020-05-21] MEDS ORDERED: HYDROCORTISONE 100 MG VIAL IV STA (14:26)
[2020-05-21] MEDS ORDERED: ONDANSETRON 4 MG/2 ML VIAL IV PRN (14:55)
[2020-05-21] MEDS ORDERED: ALBUTEROL 2.5 MG/3 ML NEB RESP TX PRN (14:55)
[2020-05-21] MEDS: SODIUM CHLORIDE 0.9% 1,000 ML IV SCH (15:00)
[2020-05-21] MEDS ORDERED: PANTOPRAZOLE 40 MG VIAL IV SCH (15:00)
[2020-05-21 16:22] LABS: ABG Base Excess -6.5 MMOL/L (-2.5-2.5); ABG HCO3 15.7 MMOL/L (20-26); ABG PCO2 24.1 MM HG (35-48); ABG PH 7.431 (7.35-7.45); ABG PO2 502.9 MM HG (80-95); ABG TCO2 16.4 MMOL/L (23-27); Allen Test Positive; Pt O2 Delivery Device Ventilator
[2020-05-21 16:29] LABS: ABG Oxygen Saturation 99.9 % (95-100)
[2020-05-21] MEDS: LACTULOSE 20 GM/30 ML UDCUP PER TUBE SCH ×2 (16:57→21:38)
[2020-05-21] MEDS: PANTOPRAZOLE 40 MG VIAL IV SCH (19:03)
[2020-05-21] MEDS ORDERED: SODIUM CHLORIDE 0.9% 500 ML IV ONE (21:30)
[2020-05-21] MEDS: RIFAXIMIN 550 MG TABLET PER TUBE SCH (21:38)
[2020-05-21] MEDS: HYDROCORTISONE 100 MG VIAL IV SCH (21:39)
[2020-05-22] MEDS: SODIUM CHLORIDE 0.9% 1,000 ML IV SCH ×3 (02:10→20:15)
[2020-05-22] MEDS: LACTULOSE 20 GM/30 ML UDCUP PER TUBE SCH ×3 (03:40→17:20)
[2020-05-22 04:42] LABS: ABG Base Excess -4.3 MMOL/L (-2.5-2.5); ABG HCO3 15.4 MMOL/L (20-26); ABG PH 7.536 (7.35-7.45); ABG PO2 222.8 MM HG (80-95)
[2020-05-22 04:46] LABS: ABG Oxygen Saturation 99.6 % (95-100)
[2020-05-22 04:47] LABS: ABG PCO2 18.6 MM HG (35-48)
[2020-05-22 04:54] LABS: Basophils % 0.2 % (0.0-0.8); Eosinophils # 1.2 10*3/uL (0.0-0.87); Eosinophils % 5.6 % (0.00-10.9); Hematocrit 20.8 VOL% (42.0-52.0); Hemoglobin 7.1 GM/DL (14.0-18.0); Immature Granulocytes % 2.2 %; Immature Granulocytes Absolute 0.46 #; Lymphocytes # 1.5 10*3/uL (1.4-4.0); Mean Corpuscular HGB Conc 34.1 GM/DL (32-36); Mean Corpuscular Volume 91.2 FL (87-102); Mean Platelet Volume 12.6 FL (9.6-12.0); Monocytes % 4.5 % (1.7-12.7); NRBC # 0.02 10*3/uL; Neutrophils % 80.5 % (38.7-73.9); Platelet Count 165 T/CUMM (130-400); Red Blood Count 2.28 MC/CUMM (3.8-5.5); Red Cell Distribution Width 23.1 % (9.3-17.3); White Blood Count 21.1 T/CUMM (4-12)
[2020-05-22 05:03] LABS: INR 4.4
[2020-05-22 05:04] LABS: PT Patient Result 43.3 SECS (9.8-11.9)
[2020-05-22 05:14] LABS: Band Neutrophils 1 % (0-10); Lymphocytes 3 % (20-55); Platelet Estimate Adequate; Segmented Neutrophils 92 % (50-85); Total Cells Counted 100
[2020-05-22 05:15] LABS: Hypochromasia Slight; Macrocytosis Slight
[2020-05-22 05:39] LABS: Calcium 7.2 MG/DL (8.5-10.1); Osmolality,Calculated 286.4 MOS/KG (273-304); Total Protein 6.8 G/DL (6.4-8.2)
[2020-05-22 05:46] LABS: Bilirubin,Total 13.8 MG/DL (0.2-1.0); Potassium 2.5 MMOL/L (3.5-5.1)
[2020-05-22] MEDS ORDERED: POTASSIUM CHLORIDE 20 MEQ/15 ML UDCUP PO ONE (05:51)
[2020-05-22] MEDS: PANTOPRAZOLE 40 MG VIAL IV SCH ×2 (06:11→18:07)
[2020-05-22] MEDS: HYDROCORTISONE 100 MG VIAL IV SCH ×3 (06:11→22:11)
[2020-05-22] MEDS ORDERED: SODIUM CHLORIDE 0.9% 1,000 ML IV PRN (06:35)
[2020-05-22] MEDS: POTASSIUM CHLORIDE 20 MEQ/15 ML UDCUP PER TUBE SCH ×2 (09:35→12:45)
[2020-05-22] MEDS: PHYTONADIONE 10 MG/1 ML AMP SUBCUT SCH (09:35)
[2020-05-22] MEDS: RIFAXIMIN 550 MG TABLET PER TUBE SCH ×2 (09:35→22:09)
[2020-05-22] MEDS ORDERED: MIDAZOLAM 100 MG in SODIUM CHLORIDE 0.9% 80 ML IV PRN (10:18)
[2020-05-22] MEDS: PHENYLEPHRINE DRIP 40 MG/250 ML PREMIX IV PRN (19:57)
[2020-05-22 21:17] LABS: Basophils # 0.1 10*3/uL (0.0-0.2); Basophils % 0.3 % (0.0-0.8); Eosinophils % 0.1 % (0.00-10.9); Immature Granulocytes % 1.2 %; Immature Granulocytes Absolute 0.22 #; Lymphocytes # 1.4 10*3/uL (1.4-4.0); Lymphocytes % 7.6 % (21.2-54.2); Mean Corpuscular HGB Conc 33.3 GM/DL (32-36); Mean Corpuscular Volume 91.5 FL (87-102); Monocytes % 4.9 % (1.7-12.7); Neutrophils % 85.9 % (38.7-73.9); Platelet Count 187 T/CUMM (130-400); Red Blood Count 2.95 MC/CUMM (3.8-5.5); Red Cell Distribution Width 21.2 % (9.3-17.3); White Blood Count 17.9 T/CUMM (4-12)
[2020-05-23] MEDS: LACTULOSE 20 GM/30 ML UDCUP PER TUBE SCH ×5 (01:47→22:06)
[2020-05-23] MEDS: PHENYLEPHRINE DRIP 40 MG/250 ML PREMIX IV PRN ×3 (02:08→11:00)
[2020-05-23 03:19] LABS: ABG Base Excess -9.7 MMOL/L (-2.5-2.5); ABG HCO3 16.7 MMOL/L (20-26); ABG Oxygen Saturation 99.2 % (95-100); ABG PH 7.435 (7.35-7.45); ABG TCO2 11.9 MMOL/L (23-27)
[2020-05-23 03:29] LABS: ABG PCO2 19.5 MM HG (35-48)
[2020-05-23 04:10] LABS: Basophils % 0.1 % (0.0-0.8); Hematocrit 25.2 VOL% (42.0-52.0); Hemoglobin 8.4 GM/DL (14.0-18.0); Immature Granulocytes Absolute 0.17 #; Lymphocytes # 0.9 10*3/uL (1.4-4.0); Lymphocytes % 5.5 % (21.2-54.2); Mean Corpuscular HGB Conc 33.3 GM/DL (32-36); Mean Corpuscular Volume 91.3 FL (87-102); Mean Platelet Volume 12.9 FL (9.6-12.0); Monocytes % 3.7 % (1.7-12.7); Neutrophils % 89.7 % (38.7-73.9); Platelet Count 187 T/CUMM (130-400); Red Blood Count 2.76 MC/CUMM (3.8-5.5); Red Cell Distribution Width 21.6 % (9.3-17.3); White Blood Count 16.8 T/CUMM (4-12)
[2020-05-23 04:28] LABS: Calcium 6.8 MG/DL (8.5-10.1); Osmolality,Calculated 293.3 MOS/KG (273-304); Total Protein 6.7 G/DL (6.4-8.2)
[2020-05-23 04:31] LABS: Band Neutrophils 1 % (0-10); Lymphocytes 5 % (20-55); Platelet Estimate Adequate; Segmented Neutrophils 93 % (50-85); Total Cells Counted 100
[2020-05-23] MEDS: HYDROCORTISONE 100 MG VIAL IV SCH ×3 (04:31→20:06)
[2020-05-23 04:35] LABS: Bilirubin,Total 14.8 MG/DL (0.2-1.0); Potassium 2.4 MMOL/L (3.5-5.1)
[2020-05-23] MEDS: POTASSIUM CHLORIDE 20 MEQ/15 ML UDCUP PER TUBE PRN ×5 (05:00→23:34)
[2020-05-23] MEDS: SODIUM CHLORIDE 0.9% 1,000 ML IV SCH ×4 (06:15→23:30)
[2020-05-23] MEDS: PANTOPRAZOLE 40 MG VIAL IV SCH ×2 (06:40→18:04)
[2020-05-23] MEDS: RIFAXIMIN 550 MG TABLET PER TUBE SCH ×2 (08:35→20:06)
[2020-05-23] MEDS: PHYTONADIONE 10 MG/1 ML AMP SUBCUT SCH (08:35)
[2020-05-23] MEDS: VASOPRESSIN 100 UNITS in SODIUM CHLORIDE 0.9% 95 ML IV SCH ×2 (10:50→18:03)
[2020-05-23] MEDS ORDERED: ALBUMIN 25% 25 GM in PREMIX 1 EACH IV ONE (12:00)
[2020-05-23] MEDS ORDERED: SODIUM CHLORIDE 0.9% 500 ML IV ONE (12:00)
[2020-05-23 13:55] LABS: Hepatitis B Core IgM Quant 0.05 Index; Hepatitis B Surface Ag Quant < 0.10 Index; Hepatitis B Surface Ag Result Non-Reactive (NonReactive); Hepatitis C Virus Ab Quant 0.32 Index; Hepatitis C Virus Ab Result Non-Reactive (NonReactive)
[2020-05-23] MEDS ORDERED: GLUCAGON 1 MG VIAL IM PRN (16:32)
[2020-05-23] MEDS: DEXTROSE 50% 25 GM/50 ML VIAL IV PRN (23:29)
[2020-05-24] MEDS: DEXTROSE 50% 25 GM/50 ML VIAL IV PRN ×4 (01:49→12:45)
[2020-05-24] MEDS: VASOPRESSIN 100 UNITS in SODIUM CHLORIDE 0.9% 95 ML IV SCH ×2 (01:52→11:09)
[2020-05-24 01:57] LABS: Basophils % 0.3 % (0.0-0.8); Eosinophils % 0.4 % (0.00-10.9); Hematocrit 25.3 VOL% (42.0-52.0); Hemoglobin 7.7 GM/DL (14.0-18.0); Lymphocytes # 1.7 10*3/uL (1.4-4.0); Lymphocytes % 17.4 % (21.2-54.2); Mean Corpuscular HGB Conc 30.4 GM/DL (32-36); Mean Platelet Volume 11.5 FL (9.6-12.0); Monocytes % 5.8 % (1.7-12.7); NRBC # 0.23 10*3/uL; Neutrophils % 75.1 % (38.7-73.9); Platelet Count 116 T/CUMM (130-400); Red Blood Count 2.48 MC/CUMM (3.8-5.5); Red Cell Distribution Width 23.3 % (9.3-17.3); White Blood Count 9.9 T/CUMM (4-12)
[2020-05-24 02:19] LABS: Albumin 1.1 G/DL (3.4-5.0); Calcium 6.5 MG/DL (8.5-10.1); Osmolality,Calculated 305.1 MOS/KG (273-304); Potassium 3.4 MMOL/L (3.5-5.1); Total Protein 5.7 G/DL (6.4-8.2)
[2020-05-24 02:21] LABS: Bilirubin,Total 13.3 MG/DL (0.2-1.0)
[2020-05-24] MEDS ORDERED: SODIUM BICARBONATE 50 MEQ/50 ML VIAL IV ONE ×2 (02:28→02:31)
[2020-05-24 02:41] LABS: Band Neutrophils 16 % (0-10); Lymphocytes 20 % (20-55); Metamyelocytes 3 %; Nucleated Red Blood Cells 2 (0-5); Segmented Neutrophils 60 % (50-85); Total Cells Counted 100
[2020-05-24 02:42] LABS: Platelet Estimate Normal
[2020-05-24 02:45] LABS: Pappenheimer Bodies 2+
[2020-05-24 02:47] LABS: Poikilocytosis 2+; Schistocytes Few
[2020-05-24 02:48] LABS: Acanthocytes Few
[2020-05-24 02:49] LABS: Burr Cells 1+; Macrocytosis 1+; Polychromasia 1+
[2020-05-24] MEDS: SODIUM BICARB INJ 150 MEQ in DEXTROSE 5% 850 ML IV SCH ×2 (02:59→09:10)
[2020-05-24] MEDS: POTASSIUM CHLORIDE 20 MEQ/15 ML UDCUP PER TUBE PRN ×2 (03:02→05:20)
[2020-05-24 04:41] LABS: ABG Base Excess -22.4 MMOL/L (-2.5-2.5); ABG HCO3 7.4 MMOL/L (20-26); ABG Oxygen Saturation 84.2 % (95-100); ABG PCO2 31.2 MM HG (35-48); ABG PO2 69.7 MM HG (80-95); ABG TCO2 8.4 MMOL/L (23-27); Allen Test Positive; Pt O2 Delivery Device Ventilator
[2020-05-24 04:44] LABS: ABG PH 6.993 (7.35-7.45)
[2020-05-24] MEDS: HYDROCORTISONE 100 MG VIAL IV SCH ×2 (05:45→12:45)
[2020-05-24] MEDS: LACTULOSE 20 GM/30 ML UDCUP PER TUBE SCH ×3 (05:46→17:47)
[2020-05-24] MEDS: PANTOPRAZOLE 40 MG VIAL IV SCH (06:00)
[2020-05-24] MEDS: RIFAXIMIN 550 MG TABLET PER TUBE SCH (08:31)
[2020-05-24] MEDS: PHYTONADIONE 10 MG/1 ML AMP SUBCUT SCH (08:32)
[2020-05-24] MEDS ORDERED: CALCIUM GLUCONATE 1,000 MG in SODIUM CHLORIDE 0.9% 100 ML IV ONE (13:30)
[2020-05-24] MEDS ORDERED: EPINEPHrine 1 MG/ML VIAL ONE (13:35)
[2020-05-24] MEDS ORDERED: DEXTROSE 10% 1,000 ML IV SCH (13:39)
[2020-05-24] MEDS ORDERED: DEXTROSE 10% 250 ML BAG IV PRN (13:43)
[2020-05-24 16:15] VITALS: BP 68/40
[2020-05-24] MEDS ORDERED: SODIUM BICARB INJ 150 MEQ in DEXTROSE 5% 850 ML IV SCH (18:00)
== END 2020-05-24 17:24 | disposition expired | DRG 441 ==
LOC: EDUNIT# → EDBD → N.ED 12:11 → N.EDINP 14:12 → N.ICU 14:41
PROVIDERS: ADMIT Internal Medicine; ATTEND Internal Medicine